=== PATIENT | male | born 1925 | race Caucasian/White ===

== ENCOUNTER → 2016-04-24 | Outpatient (CLI) | payer MEDICARE ==
--- NOTE | 2016-05-06 09:37 | P.ARTDOP ---
Arterial Doppler LOWER EXTREMITY ARTERIAL DOPPLER: DATE OF SERVICE: 04/24/2016 Reason for study: Suspected poor circulation. Doppler waveforms: Multiphasic bilaterally throughout. Pulse volume recording: Normal configuration. Pressure gradients: None. Ankle-brachial indices: Greater than 1 on the right and cannot be occluded on the left. Toe pressures: 112 on the right, 112 on the left Impression: Normal flow study. Suspect calcific wall disease causing inability to occlude ankle level..
== END | disposition home or self-care (01) ==
LOC: RADUSWWP 09:55
PROVIDERS: ATTEND Family Medicine
DX: I73.9 Peripheral vascular disease, unspecified (principal)
CPT/HCPCS: 93923

== ENCOUNTER → 2016-06-25 | Outpatient (CLI) | payer MEDICARE | END | disposition home or self-care (01) | LOC: LABWHC1 11:37 | PROVIDERS: ATTEND Family Medicine | DX: Z53.9 Procedure and treatment not carried out, unspecified reason (principal) ==

== ENCOUNTER → 2016-07-13 | Outpatient (CLI) | payer MEDICARE ==
--- NOTE | 2016-07-13 15:07 | US ---
EXAMINATION TYPE: US venous doppler duplex LE DATE OF EXAM: 07/13/2016 2:48 PM COMPARISON: NONE CLINICAL HISTORY: M79.605 Pain in left leg. Numbness bilateral legs, wound left toe LOWER EXTREMITY VENOUS INSUFFICIENCY SIDE PERFORMED: bilateral 1) Color flow is present and patency is documented in the following vessels. No DVT or SVT is noted . ? EIV ? Common Femoral Vein ? Deep Femoral Vein ? Femoral Vein ? Popliteal Vein ? Proximal Calf Veins ? Greater Saph Vein ? Upper Small Saph Vein 2) There is venous reflux noted at the following venous levels: Right CFV, right deep femoral vein, right femoral vein mid, right popliteal vein upper mid and lower, left EIV IMPRESSION: Reflux as noted above.
== END | disposition home or self-care (01) ==
LOC: RADUSWWP 13:54
PROVIDERS: ATTEND Family Medicine
DX: I87.2 Venous insufficiency (chronic) (peripheral) (principal); E13.621 Other specified diabetes mellitus with foot ulcer
CPT/HCPCS: 85652; 86140; 93970

== ENCOUNTER 2016-08-24 18:00 | Emergency (ER) | payer MEDICARE ==
--- NOTE | 2016-08-24 18:28 | ED ---
General Adult HPI - General Chief complaint: Fall Stated complaint: Fall Time Seen by Provider: 08/24/16 18:01 Source: EMS, RN notes reviewed Mode of arrival: EMS Limitations: no limitations - History of Present Illness Initial comments: Patient is an 89-year-old male presents to the emergency room for evaluation of right hip pain. Patient states a few days ago after waking up from bed he noticed his right hip was bothering him. Patient does states patient states he has left great toe wound that was recently treated with Cipro. Patient states he's been on Cipro for the past 10 days. Patient denies fevers or chills. Patient denies any redness at his hip. Patient states he has a history of rheumatoid arthritis in b/l shoulders. Patient states throughout the past few days he has been having worsening right hip pain. Patient states today while trying to transport himself from the wheelchair to his bed he slipped off the bed landing on his right hip. Patient denies any increasing hip pain. Patient states he has a history of spinal stenosis. Patient states he is mostly wheelchair bound. Patient denies any redness or heat from his right hip. Patient states the pain is worse whenever he tries to move his hip. - Related Data Home Medications Medication Instructions Recorded Confirmed Cholecalciferol [Vitamin D3] 1,000 unit PO DAILY 04/21/15 08/24/16 Cyanocobalamin [Vitamin B-12] 500 mcg PO DAILY 04/21/15 08/24/16 Aspirin EC [Ecotrin Low Dose] 81 mg PO HS 02/05/16 08/24/16 Potassium Chloride ER [K-Dur 20] 20 meq PO Q12H 02/05/16 08/24/16 Metoprolol Tartrate [Lopressor] 25 mg PO HS 06/09/16 08/24/16 traMADol HCl [Ultram] 100 mg PO BID PRN 06/09/16 08/24/16 Furosemide [Lasix] 80 mg PO BID 08/24/16 08/24/16 predniSONE See Taper PO DIRECTED 08/24/16 08/24/16 Previous Rx's Medication Instructions Recorded Omeprazole [PriLOSEC] 40 mg PO AC-BRKFST #30 cap 07/11/15 Nitrofurantoin Monohyd/M-Cryst 100 mg PO Q12HR 5 Days 08/24/16 [Macrobid] Allergies Allergy/AdvReac Type Severity Reaction Status Date / Time amoxicillin Allergy Unknown Verified 08/24/16 18:58 cefazolin Allergy Rash/Hives Verified 08/24/16 18:58 sulfamethoxazole Allergy Itching Verified 08/24/16 18:58 [From Bactrim] trimethoprim [From Bactrim] Allergy Itching Verified 08/24/16 18:58 Review of Systems ROS Statement: Those systems with pertinent positive or pertinent negative responses have been documented in the HPI. ROS Other: All systems not noted in ROS Statement are negative. Past Medical History Past Medical History: Atrial Fibrillation, Cancer, Heart Failure, COPD, GERD/ Reflux, Hypertension, Osteoarthritis (OA), Rheumatoid Arthritis (RA), Vascular Disorder Additional Past Medical History / Comment(s): PAC's, DJD, UTI, generalized arthritis and pt states RA too, back pain, esophageal stricture with dilation, prostate cancer with surgery and 20 yrs later radiation, urinary incontinence, kidney stones passed himself, bladder stone surgically removed, bilateral numbness and tingling to legs and feet, spinal stenosis, 04/2015 dermatophytosis bilateral feet. History of Any Multi-Drug Resistant Organisms: None Reported Past Surgical History: Back Surgery, Bladder Surgery, Hernia Repair, Orthopedic Surgery Additional Past Surgical History / Comment(s): neck and back surgery, bilateral knee surgery, one total Past Anesthesia/Blood Transfusion Reactions: No Reported Reaction Additional Past Anesthesia/Blood Transfusion Reaction / Comment(s): Pt states he has received blood in the past without reaction. Past Psychological History: No Psychological Hx Reported Smoking Status: Former smoker Past Alcohol Use History: Occasional Past Drug Use History: None Reported - Past Family History Mother Family Medical History: Congestive Heart Failure (CHF) Additional Family Medical History / Comment(s): Mother at age 96. Father Family Medical History: No Reported History Additional Family Medical History / Comment(s): Father of a CHI with a fall in his 70's. General Exam - General Exam Comments Initial Comments: Laying in exam room, no acute distress. Limitations: no limitations General appearance: alert, in no apparent distress Head exam: Present: atraumatic, normocephalic, normal inspection Eye exam: Present: normal appearance ENT exam: Present: normal exam Neck exam: Present: normal inspection Respiratory exam: Present: normal lung sounds bilaterally. Absent: respiratory distress Cardiovascular Exam: Present: regular rate, normal rhythm, normal heart sounds Right Hip exam: Present: normal inspection Upper Leg exam: Present: tenderness (lateral hip joint) Knee exam: Absent: tenderness Lower Leg exam: Absent: tenderness Ankle exam: Absent: tenderness Foot/Toe exam: Absent: tenderness Neurovascular tendon exam: Present: no vascular compromise. Absent: pulse deficit (2+ dorsal pedal and posterior tibial pulses), abnormal cap refill ( Capillary refill less than 2 seconds) Back exam: Present: normal inspection Neurological exam: Present: alert, oriented X3 Psychiatric exam: Present: normal affect, normal mood Skin exam: Present: warm, dry, intact, normal color. Absent: rash Course Vital Signs 08/24/16 08/24/16 08/24/16 18:01 19:08 20:51 Temperature 98.3 F 99.2 F 98.2 F Pulse Rate 57 L 107 H 80 Respiratory 18 18 18 Rate Blood Pressure 111/59 115/79 112/58 O2 Sat by Pulse 91 L 96 95 Oximetry 08/24/16 21:21 Temperature 97.8 F Pulse Rate 70 Respiratory 16 Rate Blood Pressure 112/58 O2 Sat by Pulse 98 Oximetry Medical Decision Making - Medical Decision Making Patient is a 89-year-old male presents emergency room for evaluation of fall and injury and right hip pain. Right hip and pelvis x-ray negative for any acute findings. Right hip CT ordered to rule out any missed fractures from x- ray. CT negative for any acute fractures. Patient is noted to have urinary tract infection. Patient be placed on Macrobid and advised to follow-up with primary care provider. Patient and family state they understand everything that was discussed with them. Return parameters discussed. Case discussed Dr. Diaz. - Lab Data Result diagrams: 08/24/16 18:23 08/24/16 18:23 Lab Results 08/24/16 08/24/16 08/24/16 Range/Units 18:23 18:23 18:23 WBC 18.8 H (3.8-10.6) k/uL RBC 4.64 (4.30-5.90) m/uL Hgb 13.3 (13.0-17.5) gm/dL Hct 41.5 (39.0-53.0) % MCV 89.5 (80.0-100.0) fL MCH 28.6 (25.0-35.0) pg MCHC 32.0 (31.0-37.0) g/dL RDW 15.2 (11.5-15.5) % Plt Count 135 L (150-450) k/uL Neutrophils % 92 % Lymphocytes % 2 % Monocytes % 4 % Eosinophils % 0 % Basophils % 0 % Neutrophils # 17.3 H (1.3-7.7) k/uL Lymphocytes # 0.4 L (1.0-4.8) k/uL Monocytes # 0.8 (0-1.0) k/uL Eosinophils # 0.0 (0-0.7) k/uL Basophils # 0.0 (0-0.2) k/uL Sodium 130 L (137-145) mmol/L Potassium 4.5 (3.5-5.1) mmol/L Chloride 93 L (98-107) mmol/L Carbon Dioxide 25 (22-30) mmol/L Anion Gap 12 mmol/L BUN 44 H (9-20) mg/dL Creatinine 1.40 H (0.66-1.25) mg/dL Est GFR (MDRD) Af Amer 58 (>60 ml/min/1.73 sqM) Est GFR (MDRD) Non-Af 48 (>60 ml/min/1.73 sqM) Glucose 123 H (74-99) mg/dL Calcium 8.8 (8.4-10.2) mg/dL Total Bilirubin 1.1 (0.2-1.3) mg/dL AST 10 L (17-59) U/L ALT 23 (21-72) U/L Alkaline Phosphatase 66 (38-126) U/L Total Protein 5.9 L (6.3-8.2) g/dL Albumin 2.9 L (3.5-5.0) g/dL Urine Color Light Yellow Urine Appearance Clear (Clear) Urine pH 5.0 (5.0-8.0) Ur Specific [place] 1.007 (1.001-1.035) Urine Protein Negative (Negative) Urine Glucose (UA) Negative (Negative) Urine Ketones Negative (Negative) Urine Blood Trace H (Negative) Urine Nitrite Negative (Negative) Urine Bilirubin Negative (Negative) Urine Urobilinogen <2.0 (<2.0) mg/dL Ur Leukocyte Esterase Large H (Negative) Urine RBC 3 (0-5) /hpf Urine WBC 48 H (0-5) /hpf Ur Squamous Epith Cells <1 (0-4) /hpf Urine Bacteria Many H (None) /hpf Hyaline Casts 3 H (0-2) /lpf Urine Mucus Rare H (None) /hpf - Radiology Data Radiology results: report reviewed, image reviewed Disposition Clinical Impression: Urinary tract infection, Contusion of right hip Disposition: HOME SELF-CARE Condition: Good Instructions: Urinary Tract Infection in Men (ED), Fall Prevention for Older Adults (ED) Additional Instructions: Take antibiotics as directed. Ice right hip on and off for 20 minutes at a time. Take Tylenol or Motrin as needed for pain. Please follow up with primary care provider in 1-2 days for reevaluation. If any new symptom arises or symptoms worsen, return to ER as soon as possible. Prescriptions: Nitrofurantoin Monohyd/M-Cryst [Macrobid] 100 mg PO Q12HR 5 Days Referrals: Mario Nova DO [Primary Care Provider] - 1-2 days Time of Disposition: 21:00
[2016-08-24 18:38] LABS: Basophils % (A) 0 %; CH 29.1; CHCM 32.6; Eosinophils % (A) 0 %; HCT 41.5 % (39.0-53.0); HDW 2.54; HGB 13.3 gm/dL (13.0-17.5); Luc # (Auto) 0.29; Luc % (Auto) 2; Lymphocytes # (A) 0.4 k/uL (1.0-4.8); Lymphocytes % (A) 2 %; MCH 28.6 pg (25.0-35.0); MCV 89.5 fL (80.0-100.0); Mean Platelet Volume 8.5; Monocytes # (A) 0.8 k/uL (0-1.0); Monocytes % (A) 4 %; Neutrophils # (A) 17.3 k/uL (1.3-7.7); Neutrophils % (A) 92 %; RBC 4.64 m/uL (4.30-5.90); RDW 15.2 % (11.5-15.5); WBC 18.8 k/uL (3.8-10.6)
[2016-08-24 18:41] LABS: Appearance,Urine Clear (Clear); Bacteria,Urine Many /hpf; Bilirubin,Urine Negative (Negative); Glucose,Urine (UA) Negative (Negative); Ketones,Urine Negative (Negative); Leukocyte Esterase,Urine Large (Negative); Mucus,Urine Rare /hpf; Nitrite,Urine Negative (Negative); Particle Count 8611; Protein,Urine Negative (Negative); RBC,Urine 3 /hpf (0-5); Specific Gravity,Urine 1.007 (1.001-1.035); Squamous Epithelial Cell,Urine <1 /hpf (0-4); UA Billing (MACRO vs. MICRO) MICRO; Urobilinogen,Urine <2.0 mg/dL (<2.0); WBC,Urine 48 /hpf (0-5)
[2016-08-24 18:49] LABS: Calcium 8.8 mg/dL (8.4-10.2); Potassium 4.5 mmol/L (3.5-5.1); Total Bilirubin 1.1 mg/dL (0.2-1.3); Total Protein 5.9 g/dL (6.3-8.2)
--- NOTE | 2016-08-24 19:07 | XR ---
EXAMINATION TYPE: XR Hip RT and AP Pelvis DATE OF EXAM: 08/24/2016 COMPARISON: NONE HISTORY: Fell on the right hip. Pain. TECHNIQUE: A single AP view of the pelvis is obtained. Two views of the right hip are obtained. FINDINGS: The pelvic ring appears intact. There is osteopenia. There is narrowing of hip joint spaces with acet abular spurring. There is multilevel lower lumbar spine fusion surgery. There is multilevel lumbar la minectomy. Sacroiliac joints appear intact. Proximal right femur shows no fracture. IMPRESSION: There is osteopenia. No fracture seen.
--- NOTE | 2016-08-24 20:05 | CT ---
EXAMINATION TYPE: CT hip RT wo con DATE OF EXAM: 08/24/2016 COMPARISON: NONE HISTORY: Recent fall, right hip pain. CT DLP: 390.80 mGycm Automated exposure control for dose reduction was used. FINDINGS: Multiple axial sections were obtained from the top of the right iliac crest to the subtrochanteric ri ght femur with no contrast. There is patchy osteopenia. There are small degenerative cysts in the femoral head in the acetabulum. There is some spurring on the greater trochanter of the right femur. There is narrowing of right hip joint space. There is acetabular spurring. I see no fracture. The right ischium is intact. There is atherosclerotic vascular calcification. There is mild edema in the subcutaneous fat lateral to the ri ght hip joint. IMPRESSION: MILD OSTEOARTHRITIS. OSTEOPENIA. NO ACUTE FRACTURE SEEN. THERE IS EVIDENCE FOR SOME SOFT TISSUE BRUIS ING LATERAL TO THE RIGHT HIP JOINT.
[2016-08-24] MEDS ORDERED: SODIUM CHLORIDE 0.9% 1,000 ML IV ONE (20:25)
[2016-08-24] MEDS ORDERED: NITROFURANTOIN MONOHYD/M-CRYST 100 MG CAP PO STA (20:25)
[2016-08-24 20:56] VITALS: BP 112/58
[2016-08-24 21:22] VITALS: PULSE 70; RESP 16; TEMP 97.8
== END 2016-08-24 21:22 | disposition home or self-care (01) ==
LOC: EC 18:00
DX: S70.01XA Contusion of right hip, initial encounter (principal); N39.0 Urinary tract infection, site not specified; I10 Essential (primary) hypertension; Z85.46 Personal history of malignant neoplasm of prostate; Z53.20 Procedure and treatment not carried out because of patient's decision for unspecified reasons; Z87.891 Personal history of nicotine dependence; Z88.0 Allergy status to penicillin; Z88.1 Allergy status to other antibiotic agents; Z88.2 Allergy status to sulfonamides; Z79.82 Long term (current) use of aspirin; Z79.52 Long term (current) use of systemic steroids; Z79.899 Other long term (current) drug therapy; W06.XXXA Fall from bed, initial encounter
CPT/HCPCS: 36415; 73502; 80053; 81001; 85025; 87077; 87086; 87186; 99284

== ENCOUNTER 2016-08-28 10:49 | Inpatient (IN) | payer MEDICARE ==
[2016-08-28] MEDS ORDERED: SODIUM CHLORIDE 0.9% 1,000 ML IV STA (11:30)
[2016-08-28] MEDS ORDERED: HYDROmorphone 1 MG/ML 1 ML SYRINGE IVP STA (11:30)
[2016-08-28] MEDS ORDERED: MAGNESIUM CITRATE 296 ML BOTTLE PO ONE (11:33)
--- NOTE | 2016-08-28 11:38 | ED ---
General Adult HPI - General Chief complaint: Extremity Injury, Lower Stated complaint: Hip Pain Time Seen by Provider: 08/28/16 11:11 Source: patient, family, EMS Mode of arrival: EMS Limitations: physical limitation - History of Present Illness Initial comments: This 89-year-old white male presents with and daughter with multiple complaints. He primarily is having right hip pain. He was seen here 4 days ago after falling and injuring his right hip. He normally is wheelchair bound but is able to bear minimal weight for transferring. Since Wednesday he has not been able to put any weight on his right hip. He was seen in the emergency department at that time and had negative x-rays and CAT scan of the right hip. No fracture was noted. They did note some arthritis. He was discharged with some steroids which did not help. They called their primary doctor and he was placed on [place]. This has not helped as well. He apparently has been constipated and has not had a bowel movement for the past 5 days likely related to the pain medications. He was given a suppository and oral laxatives without relief. The family also relates that he is diagnosed with the urinary tract infection. He had previously been on Cipro for a left toe wound. This apparently did not treat the infection and he is placed on Macrobid since he was here on Wednesday. He apparently had his bladder out due to cancer issues and either urinates into a condom catheter or a diaper. They state that his mental status has declined minimally over the last 2 days as well. They cannot handle him at home any longer and would like to discuss with a bilingual social worker for possible increased home care. No other identifiable complaints or modifying factors. - Related Data Home Medications Medication Instructions Recorded Confirmed Cholecalciferol [Vitamin D3] 1,000 unit PO DAILY 04/21/15 08/28/16 Cyanocobalamin [Vitamin B-12] 500 mcg PO DAILY 04/21/15 08/28/16 Aspirin EC [Ecotrin Low Dose] 81 mg PO HS 02/05/16 08/28/16 Potassium Chloride ER [K-Dur 20] 20 meq PO Q12H 02/05/16 08/28/16 Metoprolol Tartrate [Lopressor] 25 mg PO HS 06/09/16 08/28/16 traMADol HCl [Ultram] 100 mg PO BID PRN 06/09/16 08/28/16 Furosemide [Lasix] 80 mg PO BID 08/24/16 08/28/16 predniSONE See Taper PO DIRECTED 08/24/16 08/28/16 Ciprofloxacin HCl [Cipro] 250 mg PO Q12HR 08/28/16 08/28/16 HYDROcodone/APAP 5-325MG [[place] 1 tab PO Q4HR PRN 08/28/16 08/28/16 5-325] Previous Rx's Medication Instructions Recorded Omeprazole [PriLOSEC] 40 mg PO AC-BRKFST #30 cap 07/11/15 Allergies Allergy/AdvReac Type Severity Reaction Status Date / Time amoxicillin Allergy Unknown Verified 08/28/16 11:17 cefazolin Allergy Rash/Hives Verified 08/28/16 11:17 sulfamethoxazole Allergy Itching Verified 08/28/16 11:17 [From Bactrim] trimethoprim [From Bactrim] Allergy Itching Verified 08/28/16 11:17 Review of Systems ROS Statement: Those systems with pertinent positive or pertinent negative responses have been documented in the HPI. ROS Other: All systems not noted in ROS Statement are negative. Past Medical History Past Medical History: Atrial Fibrillation, Cancer, Heart Failure, COPD, GERD/ Reflux, Hypertension, Osteoarthritis (OA), Rheumatoid Arthritis (RA), Vascular Disorder Additional Past Medical History / Comment(s): PAC's, DJD, UTI, generalized arthritis and pt states RA too, back pain, esophageal stricture with dilation, prostate cancer with surgery and 20 yrs later radiation, urinary incontinence, kidney stones passed himself, bladder stone surgically removed, bilateral numbness and tingling to legs and feet, spinal stenosis, 04/2015 dermatophytosis bilateral feet. History of Any Multi-Drug Resistant Organisms: None Reported Past Surgical History: Back Surgery, Bladder Surgery, Hernia Repair, Orthopedic Surgery Additional Past Surgical History / Comment(s): neck and back surgery, bilateral knee surgery, one total Past Anesthesia/Blood Transfusion Reactions: No Reported Reaction Additional Past Anesthesia/Blood Transfusion Reaction / Comment(s): Pt states he has received blood in the past without reaction. Past Psychological History: No Psychological Hx Reported Smoking Status: Former smoker Past Alcohol Use History: Occasional Past Drug Use History: None Reported - Past Family History Mother Family Medical History: Congestive Heart Failure (CHF) Additional Family Medical History / Comment(s): Mother at age 96. Father Family Medical History: No Reported History Additional Family Medical History / Comment(s): Father of a CHI with a fall in his 70's. General Exam - General Exam Comments Initial Comments: GENERAL: The patient is well nourished and well hydrated. VITAL SIGNS: Heart rate, blood pressure, respiratory rate reviewed as recorded in nurse's notes. EYES: Pupils are round and reactive. Extraocular movements are intact. No conjunctival / lid redness or swelling. ENT: No external evidence of injury, swelling, or ecchymosis. Airway is patent. Throat is clear. NECK: Nontender. No swelling or evidence of injury. No subcutaneous emphysema. Trachea is midline. No thyroid mass. HEART: Tachycardic heart rate is noted. Good peripheral pulses. LUNGS/CHEST: Breath sounds clear and equal bilaterally. No rales, rhonchi, or wheezes. No ecchymosis, subcutaneous emphysema, or tenderness. ABDOMEN: Abdomen soft without tenderness. No palpable masses or organomegaly. No peritoneal signs. No abdominal wall swelling or ecchymosis. EXTREMITIES: There is tenderness noted to the right hip. There is increased pain with any range of motion of the right hip. Normal muscle tone and function. No thoracolumbar tenderness. There is lateral lower extremity pitting edema noted which apparently is chronic for him. He left large toe is thoroughly dressed. NEUROLOGIC: Sensation is grossly intact. Cranial nerve exam reveals face is symmetrical, tongue is midline, speech is clear. SKIN: No abrasions or ecchymosis is noted. No induration or masses noted. PSYCHIATRIC: Alert and oriented. Appropriate behavior and judgment. Limitations: physical limitation Course Vital Signs 08/28/16 10:52 Temperature 98.2 F Pulse Rate 130 H Respiratory 20 Rate Blood Pressure 123/71 O2 Sat by Pulse 95 Oximetry Medical Decision Making - Medical Decision Making The patient is seen and examined. All diagnostics are reviewed. An IV is started and he is mildly hydrated. He also receives Dilaudid 0.5 mg IV. Magnesium citrate is ordered. The EKG shows a rhythm of atrial fibrillation with rapid ventricular response with a heart rate of 111. There is no acute ST T-wave changes identified. The patient does have a right bundle-branch block. There is left axis deviation. The QRS duration is 132 the QTc interval is 41. On recheck his heart rate is approximately 120. It is felt that he does have atrial fibrillation with rapid ventricular response. He has a history of atrial fibrillation. Cardizem will be initiated. His laboratory is reviewed and does show minimal elevation of his troponin. There is other minor abnormalities with the labs. Rate of the right hip and pelvis shows significant arthritis in the right hip as well as osteopenia. X-ray of the abdomen shows evidence of constipation. It appears that he is unable to ambulate whatsoever. The family is not able to take care of him and his current state. Is felt that he would require admission to the hospital for treatment of his multiple conditions. He may need additional imaging of the hip to rule out any possibility of fracture. Old records indicate evidence of a urinary tract infection. He'll be started on IV antibiotics for this as well is it appears somewhat resistant. The case will be discussed with internal medicine shortly and he'll be admitted to the hospital for further treatment. - Lab Data Result diagrams: 08/28/16 11:52 08/28/16 11:52 Lab Results 08/28/16 08/28/16 08/28/16 Range/Units 11:52 11:52 11:52 WBC 14.6 H (3.8-10.6) k/uL RBC 4.70 (4.30-5.90) m/uL Hgb 13.9 (13.0-17.5) gm/dL Hct 41.4 (39.0-53.0) % MCV 88.1 (80.0-100.0) fL MCH 29.5 (25.0-35.0) pg MCHC 33.5 (31.0-37.0) g/dL RDW 14.9 (11.5-15.5) % Plt Count 161 (150-450) k/uL Neutrophils % 88 % Lymphocytes % 3 % Monocytes % 6 % Eosinophils % 2 % Basophils % 0 % Neutrophils # 12.9 H (1.3-7.7) k/uL Lymphocytes # 0.4 L (1.0-4.8) k/uL Monocytes # 0.9 (0-1.0) k/uL Eosinophils # 0.2 (0-0.7) k/uL Basophils # 0.0 (0-0.2) k/uL Hypochromasia Slight PT (9.0-12.0) sec INR (<1.1) APTT (22.0-30.0) sec Sodium 135 L (137-145) mmol/L Potassium 4.0 (3.5-5.1) mmol/L Chloride 96 L (98-107) mmol/L Carbon Dioxide 30 (22-30) mmol/L Anion Gap 9 mmol/L BUN 37 H (9-20) mg/dL Creatinine 1.10 (0.66-1.25) mg/dL Est GFR (MDRD) Af Amer >60 (>60 ml/min/1.73 sqM) Est GFR (MDRD) Non-Af >60 (>60 ml/min/1.73 sqM) Glucose 84 (74-99) mg/dL Calcium 9.4 (8.4-10.2) mg/dL Total Bilirubin 0.9 (0.2-1.3) mg/dL AST 16 L (17-59) U/L ALT 36 (21-72) U/L Alkaline Phosphatase 112 (38-126) U/L Total Creatine Kinase <20 L (55-170) U/L CK-MB (CK-2) 1.0 (0.0-2.4) ng/mL CK-MB (CK-2) Rel Index 0.0 Troponin I 0.178 H* (0.000-0.034) ng/mL Total Protein 5.6 L (6.3-8.2) g/dL Albumin 2.8 L (3.5-5.0) g/dL TSH 2.350 (0.465-4.680) mIU/L 08/28/16 Range/Units 11:52 WBC (3.8-10.6) k/uL RBC (4.30-5.90) m/uL Hgb (13.0-17.5) gm/dL Hct (39.0-53.0) % MCV (80.0-100.0) fL MCH (25.0-35.0) pg MCHC (31.0-37.0) g/dL RDW (11.5-15.5) % Plt Count (150-450) k/uL Neutrophils % % Lymphocytes % % Monocytes % % Eosinophils % % Basophils % % Neutrophils # (1.3-7.7) k/uL Lymphocytes # (1.0-4.8) k/uL Monocytes # (0-1.0) k/uL Eosinophils # (0-0.7) k/uL Basophils # (0-0.2) k/uL Hypochromasia PT 11.8 (9.0-12.0) sec INR 1.2 (<1.1) APTT 22.1 (22.0-30.0) sec Sodium (137-145) mmol/L Potassium (3.5-5.1) mmol/L Chloride (98-107) mmol/L Carbon Dioxide (22-30) mmol/L Anion Gap mmol/L BUN (9-20) mg/dL Creatinine (0.66-1.25) mg/dL Est GFR (MDRD) Af Amer (>60 ml/min/1.73 sqM) Est GFR (MDRD) Non-Af (>60 ml/min/1.73 sqM) Glucose (74-99) mg/dL Calcium (8.4-10.2) mg/dL Total Bilirubin (0.2-1.3) mg/dL AST (17-59) U/L ALT (21-72) U/L Alkaline Phosphatase (38-126) U/L Total Creatine Kinase (55-170) U/L CK-MB (CK-2) (0.0-2.4) ng/mL CK-MB (CK-2) Rel Index Troponin I (0.000-0.034) ng/mL Total Protein (6.3-8.2) g/dL Albumin (3.5-5.0) g/dL TSH (0.465-4.680) mIU/L Disposition Clinical Impression: Constipation, Right hip pain, Inability to walk, Tachycardia, UTI (urinary tract infection), Mental status change, Generalized weakness, Atrial fibrillation with RVR, Arthritis of right hip, Osteopenia, Elevated troponin Disposition: ADMITTED IP TO THIS [facility] Condition: Fair Time of Disposition: 13:56 Decision Date: 08/28/16 Decision Time: 13:56
[2016-08-28 12:12] LABS: Basophils % (A) 0 %; CH 28.2; CHCM 32.1; Eosinophils # (A) 0.2 k/uL (0-0.7); Eosinophils % (A) 2 %; HCT 41.4 % (39.0-53.0); HDW 2.67; HGB 13.9 gm/dL (13.0-17.5); Hypochromasia Slight; Luc # (Auto) 0.28; Luc % (Auto) 2; Lymphocytes # (A) 0.4 k/uL (1.0-4.8); Lymphocytes % (A) 3 %; MCH 29.5 pg (25.0-35.0); MCHC 33.5 g/dL (31.0-37.0); MCV 88.1 fL (80.0-100.0); Mean Platelet Volume 8.2; Monocytes # (A) 0.9 k/uL (0-1.0); Monocytes % (A) 6 %; Neutrophils # (A) 12.9 k/uL (1.3-7.7); Neutrophils % (A) 88 %; RDW 14.9 % (11.5-15.5); WBC 14.6 k/uL (3.8-10.6); WBC (Perox) 14.64
[2016-08-28 12:19] LABS: INR 1.2 (<1.1); Partial Thromboplastin Time 22.1 sec (22.0-30.0); Prothrombin Time 11.8 sec (9.0-12.0)
[2016-08-28 12:20] LABS: ALT 36 U/L (21-72); AST 16 U/L (17-59); Alkaline Phosphatase 112 U/L (38-126); Anion Gap 9 mmol/L; Blood Urea Nitrogen 37 mg/dL (9-20); Calcium 9.4 mg/dL (8.4-10.2); Carbon Dioxide 30 mmol/L (22-30); Chloride 96 mmol/L (98-107); Glucose 84 mg/dL (74-99); Non-African American GFR(MDRD) >60 (>60 ml/min/1.73 sqM); Sodium 135 mmol/L (137-145); Total Bilirubin 0.9 mg/dL (0.2-1.3); Total Protein 5.6 g/dL (6.3-8.2)
[2016-08-28 12:37] LABS: Creatine Kinase <20 U/L (55-170)
--- NOTE | 2016-08-28 12:52 | XR ---
EXAMINATION TYPE: XR KUB DATE OF EXAM: 08/28/2016 COMPARISON: NONE HISTORY: Pain TECHNIQUE: One view abdominal series FINDINGS: The osseous structures are intact. The bowel gas pattern is nonspecific. Postsurgical change involvi ng the lumbar spine with diffuse osteopenia. Severe arthropathy of the hip joints. Penile implant sug gested. Surgical clips in the pelvis. Vascular calcification seen. Retained fecal debris noted. IMPRESSION: 1. Nonspecific abdomen. Correlate for constipation.
[2016-08-28 12:53] LABS: Troponin I 0.178 ng/mL (0.000-0.034)
--- NOTE | 2016-08-28 12:55 | XR ---
EXAMINATION TYPE: XR Hip RT and AP Pelvis DATE OF EXAM: 08/28/2016 COMPARISON: NONE HISTORY: Right hip pain TECHNIQUE: A single AP view of the pelvis is obtained. Two views of the right hip are obtained. FINDINGS: There is postsurgical change lumbar spine with diffuse osteopenia. As limits assessment fo r fracture. No obvious displaced fractures are seen. Severe arthropathy of the hip joints. Retained f ecal debris throughout the colon. Penile implant and postsurgical changes are noted. Vascular calcifi cations noted. IMPRESSION: 1. Post arthritic change and severe osteopenia
[2016-08-28] MEDS ORDERED: DILTIAZEM 125 MG in SODIUM CHLORIDE 0.9% 100 ML IV ONE (13:58)
[2016-08-28] MEDS ORDERED: LEVOFLOXACIN 750MG-D5W PMX 750 MG in DEXTROSE/WATER 1 150ML.BAG IVPB STA (13:59)
[2016-08-28] MEDS ORDERED: ACETAMINOPHEN TAB 325 MG TAB PO PRN (14:00)
[2016-08-28] MEDS ORDERED: ONDANSETRON 4 MG/2 ML VIAL IVP PRN (14:00)
[2016-08-28] MEDS ORDERED: NALOXONE 0.4 MG/ML 1 ML VIAL IV PRN (14:00)
[2016-08-28 14:05] LABS: Appearance,Urine Turbid (Clear); Bacteria,Urine Moderate /hpf; Bilirubin,Urine Negative (Negative); Glucose,Urine (UA) Negative (Negative); Ketones,Urine Negative (Negative); Leukocyte Esterase,Urine Large (Negative); Nitrite,Urine Negative (Negative); PH, Urine 5.5 (5.0-8.0); Particle Count 31582; Protein,Urine 2+ (Negative); RBC,Urine 50 /hpf (0-5); Specific Gravity,Urine 1.018 (1.001-1.035); Squamous Epithelial Cell,Urine 19 /hpf (0-4); UA Billing (MACRO vs. MICRO) MICRO; WBC,Urine 148 /hpf (0-5)
[2016-08-28] MEDS ORDERED: HEPARIN SODIUM,PORCINE 5,000 UNIT/ML 1 ML VIAL IV ONE (14:05)
[2016-08-28] MEDS ORDERED: HEPARIN SODIUM,PORCINE 5,000 UNIT/ML 1 ML VIAL IV PRN (14:05)
[2016-08-28] MEDS ORDERED: HEPARIN SODIUM,PORCINE/D5W PMX 25,000 UNIT in DEXTROSE/WATER 1 500ML.BAG IV SCH (14:15)
[2016-08-28] MEDS: HYDROmorphone 1 MG/ML 1 ML SYRINGE IV PRN (17:45)
[2016-08-28] MEDS: COLLAGENASE 250 UNIT/GM OINTMENT 30 GM TUBE TOPICAL SCH (18:09)
[2016-08-28 19:34] LABS: Creatine Kinase <20 U/L (55-170)
[2016-08-28 19:42] LABS: Creatine Kinase MB 0.9 ng/mL (0.0-2.4)
[2016-08-28 19:53] LABS: Troponin I 0.276 ng/mL (0.000-0.034)
[2016-08-28] MEDS ORDERED: METOPROLOL TARTRATE 25 MG TAB PO SCH (21:00)
[2016-08-28] MEDS: POTASSIUM CHLORIDE ER 20 MEQ TAB.ER PO SCH (23:00)
[2016-08-28] MEDS: FUROSEMIDE 80 MG TAB PO SCH (23:00)
[2016-08-28] MEDS: ASPIRIN 81 MG CHEW PO SCH (23:37)
[2016-08-29 00:39] LABS: Creatine Kinase <20 U/L (55-170)
[2016-08-29 00:53] LABS: Creatine Kinase MB 0.7 ng/mL (0.0-2.4)
[2016-08-29 00:59] LABS: Troponin I 0.325 ng/mL (0.000-0.034)
[2016-08-29 06:40] LABS: Basophils % (A) 0 %; CH 28.2; CHCM 31.6; Eosinophils # (A) 0.2 k/uL (0-0.7); Eosinophils % (A) 2 %; HCT 36.6 % (39.0-53.0); HDW 2.65; HGB 11.6 gm/dL (13.0-17.5); Hypochromasia Slight; Luc # (Auto) 0.27; Luc % (Auto) 3; Lymphocytes # (A) 0.5 k/uL (1.0-4.8); Lymphocytes % (A) 4 %; MCH 28.2 pg (25.0-35.0); MCHC 31.6 g/dL (31.0-37.0); MCV 89.4 fL (80.0-100.0); Mean Platelet Volume 8.2; Monocytes # (A) 0.6 k/uL (0-1.0); Monocytes % (A) 6 %; Neutrophils # (A) 9.5 k/uL (1.3-7.7); Neutrophils % (A) 86 %; WBC (Perox) 11.23
[2016-08-29 07:05] LABS: Creatine Kinase <20 U/L (55-170)
[2016-08-29 07:14] LABS: Creatine Kinase MB 0.6 ng/mL (0.0-2.4)
[2016-08-29 07:19] LABS: Troponin I 0.288 ng/mL (0.000-0.034)
[2016-08-29] MEDS: PANTOPRAZOLE 40 MG TABLET PO SCH (08:28)
[2016-08-29] MEDS: POTASSIUM CHLORIDE ER 20 MEQ TAB.ER PO SCH ×2 (08:39→22:24)
[2016-08-29] MEDS: FUROSEMIDE 80 MG TAB PO SCH ×2 (08:39→22:23)
[2016-08-29] MEDS: PANTOPRAZOLE 40 MG/10 ML VIAL IV SCH (08:39)
[2016-08-29] MEDS: COLLAGENASE 250 UNIT/GM OINTMENT 30 GM TUBE TOPICAL SCH (08:40)
--- NOTE | 2016-08-29 09:25 | P.CNOR ---
History of Present Illness - HPI Consult date: 08/29/16 History of present illness: This is a pleasant 89-year-old male who is admitted for evaluation of atrial fibrillation and right hip pain. Orthopedics was consulted to further evaluate the patient's right hip pain. Patient states he always has right hip pain but over the last few days it has been worse. Patient states a few nights ago he slid off of his bed when trying to transfer to his wheelchair. Patient states he is wheelchair bound and has not been able to walk for a year due to spinal stenosis. Patient states this was not a hard fall and he was having right hip pain before this incident. Patient states he came to the emergency room on because his right hip pain woke him up in the middle of the night and it was very bad. Patient states the pain is to the lateral aspect of the right hip. Patient denies any pain in the groin area. Patient states he's had episodes like this before in his shoulders and he attributes this pain and arthritis. Patient denies any fever/chills. Patient states he has chronic numbness to bilateral lower extremities. Patient denies any increasing weakness or tingling to bilateral lower extremities and patient denies any current back pain. Review of Systems See HPI. Past Medical History Past Medical History: Atrial Fibrillation, Cancer, Heart Failure, COPD, GERD/ Reflux, Hypertension, Osteoarthritis (OA), Rheumatoid Arthritis (RA), Vascular Disorder Additional Past Medical History / Comment(s): PAC's, DJD, UTI, generalized arthritis and pt states RA too, back pain, esophageal stricture with dilation, prostate cancer with surgery and 20 yrs later radiation, urinary incontinence, kidney stones passed himself, bladder stone surgically removed, bilateral numbness and tingling to legs and feet, spinal stenosis, 04/2015 dermatophytosis bilateral feet. History of Any Multi-Drug Resistant Organisms: None Reported Past Surgical History: Back Surgery, Bladder Surgery, Hernia Repair, Orthopedic Surgery, Prostate Surgery Additional Past Surgical History / Comment(s): neck and back surgery, bilateral knee surgery, one total Past Anesthesia/Blood Transfusion Reactions: No Reported Reaction Additional Past Anesthesia/Blood Transfusion Reaction / Comm: Pt states he has received blood in the past without reaction. Past Psychological History: No Psychological Hx Reported Additional Psychological History / Comment(s): Pt resides with his spouse. He transfers himself into a wheelchair. He transfers himself to a shower chair. He is independent with his ADLs and manages his own medication. He can drive but spouse now does most of the driving. Retired. Was in the [employer] for a year. No international travel since then. No pets in the home at this time Smoking Status: Former smoker Past Alcohol Use History: Occasional Past Drug Use History: None Reported - Past Family History Mother Family Medical History: Congestive Heart Failure (CHF) Additional Family Medical History / Comment(s): Mother at age 96. Father Family Medical History: No Reported History Additional Family Medical History / Comment(s): Father of a CHI with a fall in his 70's. Medications and Allergies Home Medications Medication Instructions Recorded Confirmed Type Cholecalciferol [Vitamin D3] 1,000 unit PO DAILY 04/21/15 08/28/16 History Cyanocobalamin [Vitamin B-12] 500 mcg PO DAILY 04/21/15 08/28/16 History Aspirin EC [Ecotrin Low Dose] 81 mg PO HS 02/05/16 08/28/16 History Potassium Chloride ER [K-Dur 20] 20 meq PO Q12H 02/05/16 08/28/16 History Metoprolol Tartrate [Lopressor] 25 mg PO HS 06/09/16 08/28/16 History traMADol HCl [Ultram] 100 mg PO BID PRN 06/09/16 08/28/16 History Furosemide [Lasix] 80 mg PO BID 08/24/16 08/28/16 History predniSONE See Taper PO DIRECTED 08/24/16 08/28/16 History Ciprofloxacin HCl [Cipro] 250 mg PO Q12HR 08/28/16 08/28/16 History Collagenase [Santyl] 1 applic TOPICAL DAILY 08/28/16 08/28/16 History HYDROcodone/APAP 5-325MG [Independence 1 tab PO Q4HR PRN 08/28/16 08/28/16 History 5-325] Allergies Allergy/AdvReac Type Severity Reaction Status Date / Time amoxicillin Allergy Unknown Verified 08/28/16 11:17 cefazolin Allergy Rash/Hives Verified 08/28/16 11:17 sulfamethoxazole Allergy Itching Verified 08/28/16 11:17 [From Bactrim] trimethoprim [From Bactrim] Allergy Itching Verified 08/28/16 11:17 Physical Examination Right lower extremity: There is tenderness to palpation over the lateral aspect of the right hip. No tenderness palpation over the inguinal area of the right hip. There is erythema and induration to the lateral aspect of the right hip. This area blanches. There is no ecchymosis. Patient has very limited active and passive range of motion and range of motion causes increased pain to the right hip. There is 2+ pitting edema bilaterally. Dorsalis pedis pulses are 1 + bilaterally. Right lower extremity is warm to the touch and circulatory status is intact. Calf is soft and nontender. Left lower extremity: There is no tenderness to palpation over the lateral aspect of the left hip, no erythema, ecchymosis or swelling. Patient has limited but better active and passive range of motion of the left lower extremity when compared to the right lower extremity. There is no pain associated with range of motion to the left lower extremity. Calf is soft and nontender. Neurovascular and circulatory status are intact Results A CT scan of the hip done on 08/24/2016 without contrast was reviewed showing mild osteoarthritis. Osteopenia. No fracture seen. There is evidence for some soft tissue bruising lateral to the right hip joint. This report by Dr. Portillo. An x-ray of the right hip done on 08/28/2016 was reviewed showing post- arthritic change and severe osteopenia. Report by Dr. Strange. MRI of the right hip is pending. - Labs Labs: Abnormal Lab Results - Last 24 Hours (Table) 08/28/16 08/28/16 08/28/16 Range/Units 11:52 11:52 11:52 WBC 14.6 H (3.8-10.6) k/uL RBC (4.30-5.90) m/uL Hgb (13.0-17.5) gm/dL Hct (39.0-53.0) % Plt Count (150-450) k/uL Neutrophils # 12.9 H (1.3-7.7) k/uL Lymphocytes # 0.4 L (1.0-4.8) k/uL APTT (22.0-30.0) sec Sodium 135 L (137-145) mmol/L Chloride 96 L (98-107) mmol/L BUN 37 H (9-20) mg/dL AST 16 L (17-59) U/L Total Creatine Kinase <20 L (55-170) U/L Troponin I 0.178 H* (0.000-0.034) ng/mL Total Protein 5.6 L (6.3-8.2) g/dL Albumin 2.8 L (3.5-5.0) g/dL Urine Protein (Negative) Urine Blood (Negative) Ur Leukocyte Esterase (Negative) Urine RBC (0-5) /hpf Urine WBC (0-5) /hpf Ur Squamous Epith Cells (0-4) /hpf Urine Bacteria (None) /hpf 08/28/16 08/28/16 08/28/16 Range/Units 13:41 18:50 23:43 WBC (3.8-10.6) k/uL RBC (4.30-5.90) m/uL Hgb (13.0-17.5) gm/dL Hct (39.0-53.0) % Plt Count (150-450) k/uL Neutrophils # (1.3-7.7) k/uL Lymphocytes # (1.0-4.8) k/uL APTT (22.0-30.0) sec Sodium (137-145) mmol/L Chloride (98-107) mmol/L BUN (9-20) mg/dL AST (17-59) U/L Total Creatine Kinase <20 L <20 L (55-170) U/L Troponin I 0.276 H* 0.325 H* (0.000-0.034) ng/mL Total Protein (6.3-8.2) g/dL Albumin (3.5-5.0) g/dL Urine Protein 2+ H (Negative) Urine Blood Moderate H (Negative) Ur Leukocyte Esterase Large H (Negative) Urine RBC 50 H (0-5) /hpf Urine WBC 148 H (0-5) /hpf Ur Squamous Epith Cells 19 H (0-4) /hpf Urine Bacteria Moderate H (None) /hpf 08/28/16 08/29/16 08/29/16 Range/Units 23:43 06:10 06:10 WBC 11.0 H (3.8-10.6) k/uL RBC 4.10 L (4.30-5.90) m/uL Hgb 11.6 L (13.0-17.5) gm/dL Hct 36.6 L (39.0-53.0) % Plt Count 125 L (150-450) k/uL Neutrophils # 9.5 H (1.3-7.7) k/uL Lymphocytes # 0.5 L (1.0-4.8) k/uL APTT 41.6 H (22.0-30.0) sec Sodium (137-145) mmol/L Chloride (98-107) mmol/L BUN (9-20) mg/dL AST (17-59) U/L Total Creatine Kinase <20 L (55-170) U/L Troponin I 0.288 H* (0.000-0.034) ng/mL Total Protein (6.3-8.2) g/dL Albumin (3.5-5.0) g/dL Urine Protein (Negative) Urine Blood (Negative) Ur Leukocyte Esterase (Negative) Urine RBC (0-5) /hpf Urine WBC (0-5) /hpf Ur Squamous Epith Cells (0-4) /hpf Urine Bacteria (None) /hpf 08/29/16 Range/Units 06:10 WBC (3.8-10.6) k/uL RBC (4.30-5.90) m/uL Hgb (13.0-17.5) gm/dL Hct (39.0-53.0) % Plt Count (150-450) k/uL Neutrophils # (1.3-7.7) k/uL Lymphocytes # (1.0-4.8) k/uL APTT 40.6 H (22.0-30.0) sec Sodium (137-145) mmol/L Chloride (98-107) mmol/L BUN (9-20) mg/dL AST (17-59) U/L Total Creatine Kinase (55-170) U/L Troponin I (0.000-0.034) ng/mL Total Protein (6.3-8.2) g/dL Albumin (3.5-5.0) g/dL Urine Protein (Negative) Urine Blood (Negative) Ur Leukocyte Esterase (Negative) Urine RBC (0-5) /hpf Urine WBC (0-5) /hpf Ur Squamous Epith Cells (0-4) /hpf Urine Bacteria (None) /hpf Microbiology - Last 24 Hours (Table) 08/28/16 13:41 Urine Culture - Preliminary Urine,Catheterized H & H 08/28/16 08/29/16 Range/Units 11:52 06:10 Hgb 13.9 11.6 L (13.0-17.5) gm/dL Hct 41.4 36.6 L (39.0-53.0) % Coagulation 08/28/16 Range/Units 11:52 INR 1.2 (<1.1) Result Diagrams: 08/29/16 06:10 08/28/16 11:52 Assessment and Plan (1) Right hip pain Status: Acute Plan: #1. Continue bedrest #2. MRI of the right hip is pending. #3. Sed rate and CRP are pending. #4. K pad to the right hip as tolerated #5. Appreciate input from medicine. #6. Will follow the patient closely.
--- NOTE | 2016-08-29 09:49 | HP ---
DATE OF ADMISSION: 08/28/2016 Chief complaints are right hip pain. HISTORY OF PRESENT ILLNESS: This 89-year-old gentleman with a past medical history of multiple medical problems, including history of atrial fibrillation, history of COPD, GERD, hypertension, degenerative joint disease, rheumatoid arthritis, history of back surgery, being followed by Dr. Nova in the outpatient setting was complaining of right hip pain for the last several days. The patient apparently had a falling injury also. The CAT scan and x-rays were negative for any fracture. The patient was discharged on steroids and the patient was also placed on Merrill and now the patient is constipated and complaining of severe pain and also patient came to [facility] and was admitted for further evaluation and treatment. The patient was found to have a urinary tract infection. The patient also was on Cipro for left toe wound. The patient also on Macrobid currently. The patient also had some mild confusion and because of multiple complex medical issue patient taken to [facility] and admitted to the hospital for further evaluation and treatment. The patient was also found to be in atrial fibrillation with fast ventricular rate. Patient started on Cardizem drip and IV heparin. Being monitored in the ICU at this time. No history of fever, rigors, chills. No history of headache, loss of consciousness, seizures. The patient being followed by Dr. Nova in the outpatient setting. PAST MEDICAL HISTORY: Atrial fibrillation, history of congestive heart failure, history of chronic obstructive pulmonary disease, GERD. Hypertension, DJD, history of rheumatoid arthritis. History of back surgery and degenerative joint disease. Medications prior to admission home medications are: 1. Santyl one application topically daily. 2. Ultram 100 mg b.i.d. p.r.n. 3. Prednisone taper. 4. K-Dur 10 meq p.o. b.i.d. 5. Prilosec 40 mg with breakfast. 6. Lopressor 25 mg q.h.s. 7. Merrill 5 mg q.4 p.r.n. 8. Lasix 80 mg p.o. daily. 9. Vitamin B12 500 mcg p.o. daily. 10. Cipro 250 mg p.o. b.i.d. 11. Vitamin D3 1000 units p.o. daily. 12. Ecotrin 81 mg at bedtime. ALLERGIES: AMOXICILLIN, CEFAZOLIN AND BACTRIM. FAMILY HISTORY: History of congestive heart failure in the family. SOCIAL HISTORY: Previous history of smoking. Occasional alcohol intake. REVIEW OF SYSTEMS: ENT: Diminished vision. Diminished hearing. CARDIOVASCULAR SYSTEM: No angina or palpitations. RESPIRATORY: As mentioned earlier. GI: As mentioned earlier. : No dysuria. Nervous system: No numbness, weakness. ALLERGY/IMMUNOLOGY: No asthma or hayfever. MUSCULOSKELETAL: As mentioned earlier. HEMATOLOGY/ONCOLOGY: No history of anemia. ENDOCRINE: No history of hypothyroidism. CONSTITUTIONAL: As mentioned earlier. Dermatology negative. RHEUMATOLOGY: Negative. PSYCHIATRY: As mentioned earlier. PHYSICAL EXAMINATION: Alert and oriented x2. Pulse 101, blood pressure 110/67, respiratory rate 17. Temperature 97.7. Pulse ox 95% on room air. Pulse is 139 on admission. HEENT: Conjunctivae normal. Oral mucosa moist. CARDIOVASCULAR SYSTEM: S1, S2 muffled. Irregular tachycardic. RESPIRATORY: Breath sounds diminished at the bases. Scattered rhonchi and crackles. ABDOMEN: Soft, nontender. No mass palpable. LEGS: No edema. No swelling. Movements of the right hip is painful. Nervous system: Higher functions as mentioned earlier. Moves all four limbs. No focal deficits. LYMPHATICS: No lymph nodes palpable in the neck, axillae or groin. SKIN: No ulcer, rash or bleeding. LABS: WBC 14.6. Sodium 135, troponin 0.017, 0.325. UA noted. ASSESSMENT: 1. Atrial fibrillation with fast ventricular rate. 2. Troponin 0.325 indicating possible acute non- ST segment elevation myocardial infarction. 3. Acute urinary tract infection with sepsis, present on admission. 4. Acute right hip pain, possible degenerative joint disease. 5. Hyponatremia. 6. Increased WBC. 7. Hypoalbuminemia with mild to moderate protein calorie malnutrition. 8. History of atrial fibrillation. 9. History of congestive heart failure. 10. History of chronic obstructive pulmonary disease. 11. History of gastroesophageal reflux disease. 12. Hypertension, essential. 13. History of degenerative joint disease. 14. History of rheumatoid arthritis. 15. History of PACs. 16. History of esophageal stricture and dilatation. 17. History of prostate cancer. 18. History of nephrolithiasis. 19. History of spinal stenosis. 20. History of gait dysfunction. 21. Change in mental status, metabolic encephalopathy, acute, possibly secondary to urinary tract infection with sepsis. 22. Remote history of nicotine dependence. 23. NO CODE, NO CARDIOPULMONARY RESUSCITATION, NO VENT. RECOMMENDATIONS AND DISCUSSION: In this 89-year-old gentleman who presented with the multiple complex medical issues as mentioned earlier at this time, I recommend to continue current medications, continue current treatment, we will monitor in telemetry, Cardizem drip, IV heparin. Cardiology consultation. I would also recommend broad-spectrum IV antibiotics. PT, OT evaluation possible ECF rehab and symptomatic treatment. Resume the home medications. Orthopedics will be consulted for right hip pain. Guarded prognosis because of multiple complex medical issues. Discussed with the patient and family who understand and agrees. Further recommendations to follow. A copy of forwarded to Dr. Nova who is the primary care physician. FAB
--- NOTE | 2016-08-29 10:31 | P.CRDCN ---
History of Present Illness Consult date: 08/29/16 Requesting physician: Dk Sharif Reason for Consult (text): Arrhythmia Chief complaint: Right hip pain History of present illness: This is a pleasant 89-year-old gentleman who follows regularly with Dr. Raymundo Liriano in the office. He has a known history of hypertension, hyperlipidemia, GERD, prior pacemaker implantation, COPD, rheumatoid arthritis, who presents to the hospital mainly with complaints of severe right hip pain. Patient has had episodes of falls. CAT scan and x-rays were negative for any fractures. Patient had been in the hospital her back pain and was discharged home on [place]. He states he has not moved his bowels for several days and is having some discomfort from that as well. Cardiology consultation was requested because of atrial fibrillation with rapid ventricular response. Upon review of the patient's EKGs and rhythm strips this admission and prior admissions, patient has no evidence of atrial fibrillation, he does have sinus tachycardia with frequent PACs and PVCs. He is currently on a Cardizem drip at 5 mg per hour which we will discontinue, we will increase his dose of beta tahir to 25 mg one tablet by mouth twice a day. We will also discontinue the patient's heparin. White blood cell count 14.6, hemoglobin 13.9, this morning hemoglobin 11.6. Potassium 4.0, BUN 37, creatinine 1.0. TSH 2.3. Troponins 0.1, 0.2, 0.3, 0.2. Upon review of prior admissions, patient always has abnormality in his troponins in this range. Past Medical History Past Medical History: Atrial Fibrillation, Cancer, Heart Failure, COPD, GERD/ Reflux, Hypertension, Osteoarthritis (OA), Rheumatoid Arthritis (RA), Vascular Disorder Additional Past Medical History / Comment(s): PAC's, DJD, UTI, generalized arthritis and pt states RA too, back pain, esophageal stricture with dilation, prostate cancer with surgery and 20 yrs later radiation, urinary incontinence, kidney stones passed himself, bladder stone surgically removed, bilateral numbness and tingling to legs and feet, spinal stenosis, 04/2015 dermatophytosis bilateral feet. History of Any Multi-Drug Resistant Organisms: None Reported Past Surgical History: Back Surgery, Bladder Surgery, Hernia Repair, Orthopedic Surgery, Prostate Surgery Additional Past Surgical History / Comment(s): neck and back surgery, bilateral knee surgery, one total Past Anesthesia/Blood Transfusion Reactions: No Reported Reaction Additional Past Anesthesia/Blood Transfusion Reaction / Comment(s): Pt states he has received blood in the past without reaction. Past Psychological History: No Psychological Hx Reported Additional Psychological History / Comment(s): Pt resides with his spouse. He transfers himself into a wheelchair. He transfers himself to a shower chair. He is independent with his ADLs and manages his own medication. He can drive but spouse now does most of the driving. Retired. Was in the [employer] for a year. No international travel since then. No pets in the home at this time Smoking Status: Former smoker Past Alcohol Use History: Occasional Past Drug Use History: None Reported - Past Family History Mother Family Medical History: Congestive Heart Failure (CHF) Additional Family Medical History / Comment(s): Mother at age 96. Father Family Medical History: No Reported History Additional Family Medical History / Comment(s): Father of a CHI with a fall in his 70's. Medications and Allergies Home Medications Medication Instructions Recorded Confirmed Type Cholecalciferol [Vitamin D3] 1,000 unit PO DAILY 04/21/15 08/28/16 History Cyanocobalamin [Vitamin B-12] 500 mcg PO DAILY 04/21/15 08/28/16 History Aspirin EC [Ecotrin Low Dose] 81 mg PO HS 02/05/16 08/28/16 History Potassium Chloride ER [K-Dur 20] 20 meq PO Q12H 02/05/16 08/28/16 History Metoprolol Tartrate [Lopressor] 25 mg PO HS 06/09/16 08/28/16 History traMADol HCl [Ultram] 100 mg PO BID PRN 06/09/16 08/28/16 History Furosemide [Lasix] 80 mg PO BID 08/24/16 08/28/16 History predniSONE See Taper PO DIRECTED 08/24/16 08/28/16 History Ciprofloxacin HCl [Cipro] 250 mg PO Q12HR 08/28/16 08/28/16 History Collagenase [Santyl] 1 applic TOPICAL DAILY 08/28/16 08/28/16 History HYDROcodone/APAP 5-325MG [[place] 1 tab PO Q4HR PRN 08/28/16 08/28/16 History 5-325] Allergies Allergy/AdvReac Type Severity Reaction Status Date / Time amoxicillin Allergy Unknown Verified 08/28/16 11:17 cefazolin Allergy Rash/Hives Verified 08/28/16 11:17 sulfamethoxazole Allergy Itching Verified 08/28/16 11:17 [From Bactrim] trimethoprim [From Bactrim] Allergy Itching Verified 08/28/16 11:17 Physical Exam Vitals: Vital Signs Temp Pulse Pulse Resp BP BP BP 08/29/16 08:00 97.0 F L 78 16 117/53 08/29/16 03:58 96.8 F L 78 19 112/52 08/29/16 00:00 98.5 F 94 18 95/57 08/28/16 20:00 97.7 F 101 H 17 110/67 08/28/16 16:48 99 F 104 H 18 102/51 08/28/16 14:12 97.3 F L 124 H 16 102/58 08/28/16 10:52 98.2 F 130 H 20 123/71 Pulse Ox 08/29/16 08:00 94 L 08/29/16 03:58 95 08/29/16 00:00 95 08/28/16 20:00 95 08/28/16 16:48 95 08/28/16 14:12 95 08/28/16 10:52 95 Intake and Output 08/28/16 08/29/16 08/29/16 22:59 06:59 14:59 Intake Total 100 1765.463 Output Total 200 Balance 100 1565.463 Intake: Intake, IV Titration 100 1665.463 Amount Diltiazem 125 mg In 60 Sodium Chloride 0.9% 100 ml @ 5 MG/HR 5 mls/hr IV .Q24H ONE Rx#:[id number] Heparin Sodium,Porcine/ 217.063 D5w Pmx 25,000 unit In Dextrose/Water 1 500ml. bag @ 12 UNITS/KG/HR 15. 78 mls/hr IV .Q24H [facility] Rx #:[id number] Levofloxacin 750Mg-D5w 188.4 Pmx 750 mg In Dextrose/ Water 1 150ml.bag @ 100 mls/hr IVPB Q24H [facility] Rx#: [id number] Sodium Chloride 0.9% 1, 100 1200 000 ml @ 100 mls/hr IV . Q10H [facility] Rx#:[id number] Oral 100 Output: Urine 200 Other: Voiding Method Diaper Diaper Diaper # Voids 1 # Bowel Movements 1 Weight 73.5 kg 73.5 kg Patient Weight 08/30/16 06:59 Weight 73.5 kg PHYSICAL EXAMINATION: HEENT: Head is atraumatic, normocephalic. Pupils equal, round. Neck is supple. There is no elevated jugular venous pressure. HEART EXAMINATION: [Heart S1, S2 normal. No murmur or gallop heard.] CHEST EXAINATION:[ Lungs are clear to auscultation and precussion. No chest wall tenderness is noted on palpation or with deep beathing.] BDOMEN: [ Soft, nontender. Bowel sounds are heard. No organomegly noted]. EXTEMITIES:[ 1+ peripheral pulses with trace to 1+ evidence of peripheral edema and no calf tendernss noted]. dressing in place to great toe on left foot. NEROLOGIC [patient is awake, alert and orieted -2.] . Results 08/29/16 06:10 08/28/16 11:52 Cardiac Enzymes 08/28/16 08/28/16 08/28/16 Range/Units 11:52 11:52 18:50 AST 16 L (17-59) U/L CK-MB (CK-2) 1.0 0.9 (0.0-2.4) ng/mL Troponin I 0.178 H* 0.276 H* (0.000-0.034) ng/mL 08/28/16 08/29/16 Range/Units 23:43 06:10 AST (17-59) U/L CK-MB (CK-2) 0.7 0.6 (0.0-2.4) ng/mL Troponin I 0.325 H* 0.288 H* (0.000-0.034) ng/mL Coagulation 08/28/16 08/28/16 08/29/16 Range/Units 11:52 23:43 06:10 PT 11.8 (9.0-12.0) sec APTT 22.1 41.6 H 40.6 H (22.0-30.0) sec CBC 08/28/16 08/29/16 Range/Units 11:52 06:10 WBC 14.6 H 11.0 H (3.8-10.6) k/uL RBC 4.70 4.10 L (4.30-5.90) m/uL Hgb 13.9 11.6 L (13.0-17.5) gm/dL Hct 41.4 36.6 L (39.0-53.0) % Plt Count 161 125 L (150-450) k/uL Comprehensive Metabolic Panel 08/28/16 Range/Units 11:52 Sodium 135 L (137-145) mmol/L Potassium 4.0 (3.5-5.1) mmol/L Chloride 96 L (98-107) mmol/L Carbon Dioxide 30 (22-30) mmol/L BUN 37 H (9-20) mg/dL Creatinine 1.10 (0.66-1.25) mg/dL Glucose 84 (74-99) mg/dL Calcium 9.4 (8.4-10.2) mg/dL AST 16 L (17-59) U/L ALT 36 (21-72) U/L Alkaline Phosphatase 112 (38-126) U/L Total Protein 5.6 L (6.3-8.2) g/dL Albumin 2.8 L (3.5-5.0) g/dL Current Medications Generic Name Dose Route Start Last Admin Trade Name Freq PRN Reason Stop Dose Admin Acetaminophen 650 mg 08/28/16 14:00 Tylenol Tab PO Q6HR PRN Mild Pain or Fever > 100.5 Hydrocodone Bitart/Acetaminophen 1 each 08/28/16 14:00 [place] 5-325 PO Q4HR PRN Moderate Pain Aspirin 81 mg 08/28/16 21:00 08/28/16 23:37 Aspirin PO 81 mg HS [facility] Administration Cholecalciferol 1,000 unit 08/29/16 12:00 Vitamin D3 PO 1200 [facility] Collagenase 1 applic 08/28/16 18:00 08/29/16 08:40 Santyl TOPICAL 1 applic DAILY [facility] Administration Cyanocobalamin 500 mcg 08/29/16 12:00 Vitamin B-12 PO 1200 [facility] Furosemide 80 mg 08/28/16 21:00 08/29/16 08:39 Lasix PO 80 mg BID [facility] Administration Heparin Sodium (Porcine) 0 unit 08/28/16 14:05 Heparin IV PER PROTOCOL PRN Low PTT Protocol Hydromorphone HCl 1 mg 08/28/16 14:00 08/28/16 17:45 Dilaudid IV 1 mg Q3HR PRN Administration Severe Pain Diltiazem HCl 125 mg/ Sodium 125 mls @ 5 mls/hr 08/28/16 13:58 08/28/16 14:29 Chloride IV 08/29/16 13:57 5 mg/hr .Q24H [facility] 5 mls/hr Protocol Administration 5 MG/HR Heparin Sodium/Dextrose 25,000 500 mls @ 15.78 mls/hr 08/28/16 14:15 06:58 unit/ IV Solution IV 16 units/kg/hr .Q24H [facility] 21.04 mls/hr Protocol Titration 12 UNITS/KG/HR Levofloxacin 750 mg/ IV 150 mls @ 100 mls/hr 08/29/16 14:00 Solution IVPB Q24H [facility] Metoprolol Tartrate 25 mg 08/28/16 21:00 08/29/16 02:40 Lopressor PO Not Given HS [facility] Naloxone HCl 0.2 mg 08/28/16 14:00 Narcan IV Q2M PRN Opioid Reversal Ondansetron HCl 4 mg 08/28/16 14:00 Zofran IVP Q8HR PRN Nausea And Vomiting Pantoprazole Sodium 40 mg 08/29/16 09:00 08/29/16 08:39 Protonix IV 40 mg DAILY [facility] Administration Pantoprazole Sodium 40 mg 08/29/16 07:30 08/29/16 08:28 Protonix PO Not Given AC-BRKFST [facility] Potassium Chloride 20 meq 08/28/16 21:00 08/29/16 08:39 K-Dur 20 PO 20 meq Q12H [facility] Administration Intake and Output 08/28/16 08/29/16 08/29/16 22:59 06:59 14:59 Intake Total 100 1765.463 Output Total 200 Balance 100 1565.463 Intake: Intake, IV Titration 100 1665.463 Amount Diltiazem 125 mg In 60 Sodium Chloride 0.9% 100 ml @ 5 MG/HR 5 mls/hr IV .Q24H [facility] Rx#:[id number] Heparin Sodium,Porcine/ 217.063 D5w Pmx 25,000 unit In Dextrose/Water 1 500ml. bag @ 12 UNITS/KG/HR 15. 78 mls/hr IV .Q24H [facility] Rx #:[id number] Levofloxacin 750Mg-D5w 188.4 Pmx 750 mg In Dextrose/ Water 1 150ml.bag @ 100 mls/hr IVPB Q24H [facility] Rx#: [id number] Sodium Chloride 0.9% 1, 100 1200 000 ml @ 100 mls/hr IV . Q10H [facility] Rx#:[id number] Oral 100 Output: Urine 200 Other: Voiding Method Diaper Diaper Diaper # Voids 1 # Bowel Movements 1 Weight 73.5 kg 73.5 kg Patient Weight 08/30/16 06:59 Weight 73.5 kg 08/29/16 06:10 08/28/16 11:52 EKG Interpretations (text) EKG shows a normal sinus rhythm to sinus tachycardia with occasional PACs and PVCs. Right bundle branch block pattern. Assessment and Plan Plan: Assessment and plan #1 right hip pain, patient has history of rheumatoid arthritis and degenerative joint disease. Orthopedic consultation requested. #2 arrhythmia in the form of sinus tachycardia with frequent PACs and PVCs. No evidence of any atrial fibrillation. #3 history of hypertension #4 history of hyperlipidemia #5 acute UTI #6 rheumatoid arthritis #7 mental status changes, could be secondary to acute UTI. #8 abnormal troponins, not consistent with acute coronary syndrome. Patient always has abnormal troponins in this range. Plan Cardiogram with Doppler study was recently performed in the hospital in June which revealed normal left ventricular systolic function at that time. We will repeat an echo on this admission. We will discontinue the IV Cardizem and increase dose of beta tahir to 25 mg one tablet by mouth twice a day. Discontinue IV heparin. DNP note has been reviewed, I agree with a documented findings and plan of care. Patient was seen and examined.
[2016-08-29] MEDS ORDERED: SENNOSIDES-DOCUSATE SODIUM 1 EACH TAB PO PRN (12:55)
[2016-08-29] MEDS: CYANOCOBALAMIN 500 MCG TAB PO SCH (13:22)
[2016-08-29] MEDS: METOPROLOL TARTRATE 25 MG TAB PO SCH (13:22)
[2016-08-29] MEDS: CHOLECALCIFEROL 1,000 UNIT TAB PO SCH (13:22)
[2016-08-29] MEDS: LEVOFLOXACIN 750MG-D5W PMX 750 MG in DEXTROSE/WATER 1 150ML.BAG IVPB SCH (13:23)
[2016-08-29] MEDS: HYDROmorphone 1 MG/ML 1 ML SYRINGE IV PRN (14:53)
--- NOTE | 2016-08-29 15:07 | XR ---
EXAMINATION TYPE: XR chest 1V portable DATE OF EXAM: 08/29/2016 COMPARISON: 06/09/2016 HISTORY: Heart failure chest pain TECHNIQUE: Single frontal view of the chest is obtained. FINDINGS: There is mild linear density at the left lung base. There is no heart failure. There are n o hilar masses. Thoracic aorta is atheromatous. There are chest leads. There is left axillary pacemak er with the lead tips in the right ventricle. Cervical spine fusion surgery is noted. IMPRESSION: Minimal subsegmental atelectasis at the left lung base is new compared to last exam. No heart failure.
--- NOTE | 2016-08-29 16:50 | PN ---
This 89-year-old gentleman was admitted with right hip pain, also had atrial fibrillation with fast ventricular rate. The patient also had evidence of a UTI and elevated troponin also. The patient is being closely monitored at this time. The patient was mildly confused, also. Multiple consultants are following the patient closely. PAST MEDICAL HISTORY: Reviewed. REVIEW OF SYSTEMS: CARDIOVASCULAR: No angina or palpitations. RESPIRATORY: As mentioned earlier. GI: As mentioned earlier. : No new symptoms. Current medications are reviewed and include: 1. Tylenol p.r.n. 2. [place] 5 mg. 3. Aspirin 81 mg. 4. Vitamin D3. 5. Zantac. 6. Vitamin B12. 7. Lasix 80 mg. 8. Dilaudid. 9. Levaquin. 10. Lopressor. 11. Zofran. 12. Protonix. 13. K-Dur. 14. Senokot. PHYSICAL EXAM: The patient is alert and oriented x3. Pulse 78, blood pressure ntd, respirations 16, temperature 97 degrees, pulse ox 94% on 2L. HEENT: Conjunctivae normal. NECK: No jugular venous distension. CARDIOVASCULAR: S1 and S2 muffled. RESPIRATORY: Breath sounds diminished in the bases. A few scattered rhonchi and crackles. ABDOMEN: Soft, nontender. No mass palpable LEGS: Right leg movements are slightly painful. NERVOUS SYSTEM: No focal deficits. LABS: WBC 11. ESR is 43. CRP is 224. Troponin 0.20, 0.325. UA noted. ASSESSMENT: 1. Atrial fibrillation with fast ventricular rate, present on admission. 2. Troponin 0.325, indicating possible acute non-ST segment elevation myocardial infarction, present on admission. 3. Acute urinary tract infection with sepsis, present on admission. 4. Acute right hip and possible degenerative joint disease, acute exacerbation. 5. Hyponatremia. 6. Increased WBC. 7. Hypoalbuminemia with mild to moderate protein-calorie malnutrition. 8. History of atrial fibrillation. 9. History of congestive heart failure. 10. History of chronic obstructive pulmonary disease. 11. History of gastroesophageal reflux disease. 12. Essential hypertension, history. 13. History of degenerative joint disease. 14. History of rheumatoid arthritis. 15. History of premature atrial contractions. 16. History of esophageal dilatation. 17. History of prostate cancer. 18. History of nephrolithiasis. 19. History of spinal stenosis. 20. History of gait dysfunction. 21. Change in mental status, metabolic encephalopathy, acute, possibly secondary to urinary tract infection with sepsis. 22. Remote history of nicotine dependence. 23. NO CODE, NO CARDIOPULMONARY RESUSCITATION, NO VENTILATOR. RECOMMENDATIONS AND DISCUSSION: Recommend to continue current medications. Continue with monitoring and symptomatic treatment. Continue with IV antibiotics. Otherwise, I would also recommend a short course of steroids if okay with Orthopedic Surgery. Otherwise, continue to monitor. Empiric antibiotics, cultures. Further recommendations to follow. MTDD
[2016-08-29] MEDS: ASPIRIN 81 MG CHEW PO SCH (22:23)
[2016-08-30] MEDS: METOPROLOL TARTRATE 25 MG TAB PO SCH ×3 (01:06→23:37)
[2016-08-30] MEDS: HYDROcodone/APAP 5-325MG 1 EACH TAB PO PRN ×2 (01:12→20:49)
[2016-08-30 06:28] LABS: Basophils % (A) 0 %; Eosinophils # (A) 0.2 k/uL (0-0.7); Eosinophils % (A) 1 %; Hypochromasia Slight; MCH 29.8 pg (25.0-35.0); RDW 14.7 % (11.5-15.5)
[2016-08-30 06:30] LABS: CH 28.1; CHCM 32.6; HCT 35.5 % (39.0-53.0); HDW 2.75; HGB 12.3 gm/dL (13.0-17.5); Luc # (Auto) 0.33; Luc % (Auto) 3; Lymphocytes # (A) 0.4 k/uL (1.0-4.8); Lymphocytes % (A) 3 %; MCHC 34.5 g/dL (31.0-37.0); MCV 86.3 fL (80.0-100.0); Mean Platelet Volume 7.5; Monocytes # (A) 0.6 k/uL (0-1.0); Monocytes % (A) 5 %; Neutrophils # (A) 11.3 k/uL (1.3-7.7); Neutrophils % (A) 88 %; RBC 4.12 m/uL (4.30-5.90); WBC 12.8 k/uL (3.8-10.6)
[2016-08-30 06:49] LABS: Anion Gap 9 mmol/L; Blood Urea Nitrogen 28 mg/dL (9-20); Calcium 8.4 mg/dL (8.4-10.2); Carbon Dioxide 29 mmol/L (22-30); Chloride 94 mmol/L (98-107); Glucose 85 mg/dL (74-99); Non-African American GFR(MDRD) >60 (>60 ml/min/1.73 sqM); Potassium 3.5 mmol/L (3.5-5.1); Sodium 132 mmol/L (137-145)
[2016-08-30] MEDS ORDERED: PANTOPRAZOLE 40 MG TABLET PO ONE (09:00)
[2016-08-30] MEDS ORDERED: POTASSIUM CHLORIDE ER 20 MEQ TAB.ER PO ONE (09:00)
[2016-08-30] MEDS ORDERED: METOPROLOL TARTRATE 25 MG TAB ONE (09:00)
[2016-08-30] MEDS ORDERED: FUROSEMIDE 40 MG TAB ONE (09:00)
[2016-08-30] MEDS ORDERED: PANTOPRAZOLE 40 MG/10 ML VIAL ONE (09:00)
[2016-08-30] MEDS: COLLAGENASE 250 UNIT/GM OINTMENT 30 GM TUBE TOPICAL SCH (11:00)
[2016-08-30] MEDS: FUROSEMIDE 80 MG TAB PO SCH ×2 (11:00→23:09)
[2016-08-30] MEDS: PANTOPRAZOLE 40 MG/10 ML VIAL IV SCH (11:01)
[2016-08-30] MEDS: POTASSIUM CHLORIDE ER 20 MEQ TAB.ER PO SCH ×2 (11:01→23:09)
[2016-08-30] MEDS: PANTOPRAZOLE 40 MG TABLET PO SCH (11:02)
[2016-08-30] MEDS: methylPREDNISolone SOD SUCCI 40 MG/ML 1 ML VIAL IV SCH ×3 (11:43→23:10)
[2016-08-30] MEDS: CHOLECALCIFEROL 1,000 UNIT TAB PO SCH (11:43)
[2016-08-30] MEDS: CYANOCOBALAMIN 500 MCG TAB PO SCH (11:43)
--- NOTE | 2016-08-30 12:08 | P.PN ---
Subjective Principal diagnosis: Arrhythmia This is a pleasant 89-year-old gentleman who follows regularly with Dr. Raymundo Liriano in the office. He has a known history of hypertension and hyperlipidemia, prior pacemaker, rheumatoid arthritis. He initially presented to the hospital with severe right hip pain. Patient has been having frequent falls at home cardiology consultation was requested yesterday because of suspected atrial fibrillation. Patient was actually found to be in sinus tachycardia with PACs and PVCs. This morning patient is in a normal sinus rhythm. Blood pressure 100/50 with a heart rate in the 80s, 94% on 2 L of oxygen. Potassium 3.5, hemoglobin 12.3. Objective - Vital Signs Vital signs: Vital Signs Temp 98.5 F 08/30/16 04:00 Pulse 80 08/30/16 11:40 Resp 14 08/30/16 11:40 BP 91/53 08/30/16 11:40 Pulse Ox 96 08/30/16 11:40 Intake & Output 08/29/16 08/30/16 08/30/16 18:59 06:59 18:59 Intake Total 200 Balance 200 Weight 73.5 kg 73 kg 73 kg Intake: Oral 200 Other: Voiding Method Diaper Diaper Diaper # Voids 1 1 # Bowel Movements 1 - Exam PHYSICAL EXAMINATION: HEENT: Head is atraumatic, normocephalic. Pupils equal, round. Neck is supple. There is no elevated jugular venous pressure. HEART EXAMINATION: Heart S1, S2 normal. No murmur or gallop heard. CHEST EXAMINATION: Lungs are clear to auscultation and precussion. No chest wall tenderness is noted on palpation or with deep breathing. ABDOMEN: Soft, nontender. Bowel sounds are heard. No organomegaly noted. EXTREMITIES: 2+ peripheral pulses with evidence of peripheral edema and no calf tenderness noted. NEUROLOGIC [patient is awake, alert and oriented -2.] . - Labs CBC & Chem 7: 08/30/16 05:32 08/30/16 05:32 Labs: Abnormal Lab Results - Last 24 Hours (Table) 08/29/16 08/30/16 08/30/16 Range/Units 06:10 05:32 05:32 WBC 12.8 H (3.8-10.6) k/uL RBC 4.12 L (4.30-5.90) m/uL Hgb 12.3 L (13.0-17.5) gm/dL Hct 35.5 L (39.0-53.0) % Plt Count 123 L (150-450) k/uL Neutrophils # 11.3 H (1.3-7.7) k/uL Lymphocytes # 0.4 L (1.0-4.8) k/uL ESR 43 H (0-15) mm/hr Sodium 132 L (137-145) mmol/L Chloride 94 L (98-107) mmol/L BUN 28 H (9-20) mg/dL Microbiology - Last 24 Hours (Table) 08/28/16 13:41 Urine Culture - Preliminary Urine,Catheterized Gram Neg Bacilli 08/28/16 11:52 Blood Culture - Preliminary Blood No Growth after 24 hours Assessment and Plan Plan: Assessment and plan #1 right hip pain, patient has history of rheumatoid arthritis and degenerative joint disease. Orthopedic consultation requested. #2 arrhythmia in the form of sinus tachycardia with frequent PACs and PVCs. No evidence of any atrial fibrillation. #3 history of hypertension #4 history of hyperlipidemia #5 acute UTI #6 rheumatoid arthritis #7 mental status changes, could be secondary to acute UTI. #8 abnormal troponins, not consistent with acute coronary syndrome. Patient always has abnormal troponins in this range. Plan Patient today is hemodynamically stable. We'll continue with his current medications. Obtain repeat echocardiogram with Doppler study. DNP note has been reviewed, I agree with a documented findings and plan of care. Patient was seen and examined.
--- NOTE | 2016-08-30 13:01 | P.PN ---
Subjective Principal diagnosis: Right hip pain This is an 89-year-old male who is admitted for right hip pain. Patient states his hip pain has improved slightly since yesterday. Patient states he still has right hip pain with movement. Patient denies any new complaints today. Objective - Vital Signs Vital signs: Vital Signs Temp 98.5 F 08/30/16 04:00 Pulse 87 08/30/16 04:00 Resp 19 08/30/16 04:00 BP 95/50 08/30/16 04:00 Pulse Ox 95 08/30/16 04:00 Intake & Output 08/29/16 08/30/16 08/30/16 18:59 06:59 18:59 Intake Total 200 Balance 200 Weight 73.5 kg 73 kg Intake: Oral 200 Other: Voiding Method Diaper Diaper # Voids 1 # Bowel Movements 1 - Exam On exam there is tenderness to palpation over the lateral aspect of the right hip. There is erythema over the lateral aspect of the right hip with pitting edema in this area. There is pain to the right hip with range of motion of the right lower extremity. Patient has limited active and passive range of motion of the right lower extremity due to pain. Calf is soft and nontender. 1+ pitting edema to bilateral lower extremities. Dorsalis pedis pulses are 1+ bilaterally. - Labs CBC & Chem 7: 08/30/16 05:32 08/30/16 05:32 Labs: Abnormal Lab Results - Last 24 Hours (Table) 08/29/16 08/29/16 08/29/16 Range/Units 06:10 06:10 06:10 WBC (3.8-10.6) k/uL RBC (4.30-5.90) m/uL Hgb (13.0-17.5) gm/dL Hct (39.0-53.0) % Plt Count (150-450) k/uL Neutrophils # (1.3-7.7) k/uL Lymphocytes # (1.0-4.8) k/uL ESR 43 H (0-15) mm/hr Sodium (137-145) mmol/L Chloride (98-107) mmol/L BUN (9-20) mg/dL Total Creatine Kinase <20 L (55-170) U/L Troponin I 0.288 H* (0.000-0.034) ng/mL C-Reactive Protein 224.9 H (<10.0) mg/L 08/30/16 08/30/16 Range/Units 05:32 05:32 WBC 12.8 H (3.8-10.6) k/uL RBC 4.12 L (4.30-5.90) m/uL Hgb 12.3 L (13.0-17.5) gm/dL Hct 35.5 L (39.0-53.0) % Plt Count 123 L (150-450) k/uL Neutrophils # 11.3 H (1.3-7.7) k/uL Lymphocytes # 0.4 L (1.0-4.8) k/uL ESR (0-15) mm/hr Sodium 132 L (137-145) mmol/L Chloride 94 L (98-107) mmol/L BUN 28 H (9-20) mg/dL Total Creatine Kinase (55-170) U/L Troponin I (0.000-0.034) ng/mL C-Reactive Protein (<10.0) mg/L Microbiology - Last 24 Hours (Table) 08/28/16 13:41 Urine Culture - Preliminary Urine,Catheterized Gram Neg Bacilli 08/28/16 11:52 Blood Culture - Preliminary Blood No Growth after 24 hours Assessment and Plan (1) Right hip pain Status: Acute Plan: #1. Continue bedrest #2. MRI of the right hip is pending. #3. K pad to the right hip as tolerated #4. Appreciate input from medicine. #5. Will follow the patient closely.
[2016-08-30] MEDS: LEVOFLOXACIN 750MG-D5W PMX 750 MG in DEXTROSE/WATER 1 150ML.BAG IVPB SCH (15:21)
[2016-08-30] MEDS: INSULIN LISPRO (humaLOG) 300 UNIT/3 ML VIAL SQ SCH ×2 (18:29→23:11)
--- NOTE | 2016-08-30 21:03 | PN ---
This 89-year-old gentleman who was admitted with atrial fibrillation with fast ventricular rate also had troponin 0.32 indicating acute non-ST segment. The patient also had UTI. Gram negative bacilli growing from the culture. No chest pain. No palpitations. No fever. On exam, alert and oriented x2. Pulse is 89. Blood pressure 95/35. Respiratory rate 14. Temperature normal. Pulse ox 92% on 2 liters. HEENT: Conjunctivae normal. NECK: No jugular venous distention. CARDIOVASCULAR: S1 S2, muffled. RESPIRATORY: breath sounds diminished at the bases. A few scattered rhonchi. ABDOMEN: Soft, nontender. Legs: No edema, no swelling. Nervous system: No focal deficits. LABS: WBC is 12.8, hemoglobin 12.3 and sodium is 132, troponin 0.288 and 0.325. ASSESSMENT: 1. Atrial fibrillation with fast ventricular rate, present on admission. 2. Troponin 0.325 indicating possible acute non-ST segment elevation myocardial infarction present on admission. 3. Acute urinary tract infection with sepsis present on admission. 4. Acute right hip pain, possible degenerative joint disease, acute exacerbation. 5. Hyponatremia. 6. Increased WBC. 7. Hypoalbuminemia with mild to moderate protein calorie malnutrition. 8. History of atrial fibrillation. 9. History of congestive heart failure. 10. History of chronic obstructive pulmonary disease. 11. History of gastroesophageal reflux disease. 12. Essential hypertension history. 13. History of degenerative joint disease. 14. History rheumatoid arthritis. 15. History of premature atrial contractions. 16. History of esophageal dilatation. 17. History of prostate cancer. 18. History of nephrolithiasis. 20. History of gait dysfunction. 21. History of change in mental status, metabolic encephalopathy, acute, possibly secondary to urinary tract infection with sepsis, present on admission. 22. Remote history of nicotine dependence. 23. NO CODE NO CPR, NO VENT. RECOMMENDATIONS AND DISCUSSION: Recommend to continue current medications. Continue symptomatic treatment. Otherwise, at this time, I would recommend to continue the current medications, symptomatic treatment, continue empiric antibiotics, empiric steroids, also. Otherwise, I would also recommend, monitor the blood sugars closely. The pain is improving significantly. PT, OT evaluation. Otherwise, continue the rest of medications. Await for the final reports of the antibiotics. Guarded prognosis. Further recommendations to follow. [facility]
[2016-08-30 21:13] LABS: Glucose,Whole Blood 240 mg/dL (75-99)
[2016-08-30] MEDS: ASPIRIN 81 MG CHEW PO SCH (23:09)
[2016-08-31 05:59] LABS: Glucose,Whole Blood 169 mg/dL (75-99)
[2016-08-31 06:24] LABS: Basophils % (A) 0 %; CH 27.8; CHCM 32.1; Eosinophils % (A) 0 %; HDW 2.74; HGB 11.9 gm/dL (13.0-17.5); Hypochromasia Slight; Luc # (Auto) 0.07; Luc % (Auto) 1; Lymphocytes # (A) 0.3 k/uL (1.0-4.8); Lymphocytes % (A) 2 %; MCH 28.8 pg (25.0-35.0); MCHC 33.2 g/dL (31.0-37.0); MCV 86.8 fL (80.0-100.0); Mean Platelet Volume 8.3; Monocytes # (A) 0.2 k/uL (0-1.0); Monocytes % (A) 1 %; Neutrophils % (A) 96 %; RBC 4.14 m/uL (4.30-5.90); RDW 14.6 % (11.5-15.5); WBC 13.5 k/uL (3.8-10.6); WBC (Perox) 14.82
[2016-08-31 06:36] LABS: Anion Gap 8 mmol/L; Blood Urea Nitrogen 35 mg/dL (9-20); Calcium 8.4 mg/dL (8.4-10.2); Carbon Dioxide 30 mmol/L (22-30); Chloride 95 mmol/L (98-107); Glucose 174 mg/dL (74-99); Non-African American GFR(MDRD) >60 (>60 ml/min/1.73 sqM); Potassium 3.9 mmol/L (3.5-5.1); Sodium 133 mmol/L (137-145)
[2016-08-31] MEDS: methylPREDNISolone SOD SUCCI 40 MG/ML 1 ML VIAL IV SCH ×3 (06:49→22:07)
[2016-08-31] MEDS: INSULIN LISPRO (humaLOG) 300 UNIT/3 ML VIAL SQ SCH ×4 (06:49→22:09)
[2016-08-31] MEDS: PANTOPRAZOLE 40 MG TABLET PO SCH (06:50)
[2016-08-31] MEDS: FUROSEMIDE 80 MG TAB PO SCH ×2 (08:22→22:07)
[2016-08-31] MEDS: METOPROLOL TARTRATE 25 MG TAB PO SCH ×2 (08:22→22:07)
[2016-08-31] MEDS: POTASSIUM CHLORIDE ER 20 MEQ TAB.ER PO SCH ×2 (08:22→22:08)
[2016-08-31] MEDS: CYANOCOBALAMIN 500 MCG TAB PO SCH (08:22)
[2016-08-31] MEDS: PANTOPRAZOLE 40 MG/10 ML VIAL IV SCH (08:22)
[2016-08-31] MEDS: CHOLECALCIFEROL 1,000 UNIT TAB PO SCH (08:23)
[2016-08-31] MEDS: COLLAGENASE 250 UNIT/GM OINTMENT 30 GM TUBE TOPICAL SCH (08:34)
--- NOTE | 2016-08-31 09:26 | P.PN ---
Subjective Principal diagnosis: Right hip pain This is an 89-year-old male who is admitted for right hip pain. Patient states his hip pain has improved except for with movement of the right lower extremity. Patient denies any worsening symptoms of hip pain. Patient denies any new complaints today. Objective - Vital Signs Vital signs: Vital Signs Temp 97.8 F 08/31/16 08:00 Pulse 96 08/31/16 08:00 Resp 18 08/31/16 08:00 BP 114/61 08/31/16 08:00 Pulse Ox 96 08/31/16 08:00 Intake & Output 08/30/16 08/31/16 08/31/16 18:59 06:59 18:59 Intake Total 200 Output Total 400 Balance -400 200 Weight 73 kg 71 kg Intake: Oral 200 Output: Urine 400 Other: Voiding Method Diaper Diaper Diaper # Voids 1 # Bowel Movements 1 - Exam On exam there is tenderness to palpation over the lateral aspect of the right hip. There is mild erythema over the lateral aspect of the right hip that has improved slightly since yesterday. Patient continues to have pitting edema to the right hip. There is pain to the right hip with range of motion of the right lower extremity. Calf is soft and nontender. 1+ pitting edema to bilateral lower extremities. Dorsalis pedis pulses are 1+ bilaterally. - Labs CBC & Chem 7: 08/31/16 05:51 08/31/16 05:51 Labs: Abnormal Lab Results - Last 24 Hours (Table) 08/30/16 08/31/16 08/31/16 Range/Units 20:51 05:51 05:51 WBC 13.5 H (3.8-10.6) k/uL RBC 4.14 L (4.30-5.90) m/uL Hgb 11.9 L (13.0-17.5) gm/dL Hct 36.0 L (39.0-53.0) % Plt Count 135 L (150-450) k/uL Neutrophils # 13.0 H (1.3-7.7) k/uL Lymphocytes # 0.3 L (1.0-4.8) k/uL Sodium 133 L (137-145) mmol/L Chloride 95 L (98-107) mmol/L BUN 35 H (9-20) mg/dL Glucose 174 H (74-99) mg/dL POC Glucose (mg/dL) 240 H (75-99) mg/dL 08/31/16 Range/Units 05:55 WBC (3.8-10.6) k/uL RBC (4.30-5.90) m/uL Hgb (13.0-17.5) gm/dL Hct (39.0-53.0) % Plt Count (150-450) k/uL Neutrophils # (1.3-7.7) k/uL Lymphocytes # (1.0-4.8) k/uL Sodium (137-145) mmol/L Chloride (98-107) mmol/L BUN (9-20) mg/dL Glucose (74-99) mg/dL POC Glucose (mg/dL) 169 H (75-99) mg/dL Microbiology - Last 24 Hours (Table) 08/28/16 13:41 Urine Culture - Final Urine,Catheterized Escherichia coli 08/28/16 11:52 Blood Culture - Preliminary Blood No Growth after 48 hours Assessment and Plan (1) Right hip pain Status: Acute Plan: #1. Continue bedrest #2. MRI of the right hip is pending. #3. K pad to the right hip as tolerated #4. Appreciate input from medicine. #5. Will follow the patient closely.
[2016-08-31] MEDS: HYDROmorphone 1 MG/ML 1 ML SYRINGE IV PRN (11:20)
[2016-08-31 11:43] LABS: Hemoglobin A1C 6.2 % (4.2-6.1)
[2016-08-31 12:04] LABS: Glucose,Whole Blood 232 mg/dL (75-99)
[2016-08-31] MEDS: LEVOFLOXACIN 750MG-D5W PMX 750 MG in DEXTROSE/WATER 1 150ML.BAG IVPB SCH (13:09)
--- NOTE | 2016-08-31 14:56 | CDI ---
In responding to this query, please exercise your independent professional judgment. The [facility] Coding Staff and Clinical Documentation Specialists appreciate your assistance in clarifying documentation, maintaining compliance with coding guidelines, accurately documenting patients condition and capturing severity of illness. The fact that a question is asked does not imply that any particular answer is desired or expected. Communication forms are a method of clarifying documentation and are not made part of the Legal Health Record. Thank you in advance for your clarification. Last Revision, January 2015 Janeen rFench [address] [place] [address] Documentation Clarification Form Date: 08/31/2016 2:50:00 PM From: Salinas Christianson, RN, BSN, CDI, CCDS Admit Date: 08/28/2016 2:01:00 PM Patient Name: Marshall Buitrago Visit Number: [id number] Dr. Dk Sharif: Conflicting documentation has been found in the medical record. "Troponin 0.325 indicating possible acute NSTEMI" is documented your H&P and progress notes. Cardiology documents "abnormal troponins, not consistent with acute coronary syndrome, pt always has abnormal troponins in this range". Patient History/Risk Factors: 89 yo male with a history of CHF, HTN, Afib and PPM presents with c/o right hip pain and constipation. Also being treated for UTI with sepsis POA. Clinical Indicators: Troponin: 0.178/0.276/0.325/0.288 EKG Results: "Afib w/RVR with premature ventricular or aberrantly conducted complexes" @ 111 bpm Treatment: Heparin bolus/gtt, Metoprolol, ASA, tele, Cardizem gtt Consult: cardiology In your opinion what is the most clinically appropriate diagnosis for this patient? Possible NSTEMI (POA or ruled out) Abnormal troponins, not consistent with acute coronary syndrome OTHER explanation of clinical findings Unable to determine (no explanation for clinical findings) Please document in your progress notes and discharge summary in order to capture severity of illness and risk of mortality. Include clinical findings that support your diagnosis. FYI: Press F11 to launch patient chart. _x___ Place X here if this finding has no clinical significance, is not applicable or if you are not able to provide any additional documentation. FAB
--- NOTE | 2016-08-31 15:07 | CDI ---
In responding to this query, please exercise your independent professional judgment. The [facility] Coding Staff and Clinical Documentation Specialists appreciate your assistance in clarifying documentation, maintaining compliance with coding guidelines, accurately documenting patients condition and capturing severity of illness. The fact that a question is asked does not imply that any particular answer is desired or expected. Communication forms are a method of clarifying documentation and are not made part of the Legal Health Record. Thank you in advance for your clarification. Last Revision, June 2016 Janeen [address] [facility] [place] [address] Documentation Clarification Form Date: 08/31/2016 2:56:00 PM From: Salinas Christianson, RN, BSN, CDI, CCDS Admit Date: 08/28/2016 2:01:00 PM Patient Name: Marshall Buitrago Visit Number: [id number] Dr. Dk Sharif: "Acute UTI w/sepsis POA" is documented in the H&P and your progress notes. History/Risk Factors: 89 yo male who is wheelchair bound, presents with c/o right hip pain after falling four days ago. He has a history of prostate cancer , OA, RA, CHF and back pain. He is also noted to have acute mental status changes/acute metabolic encephalopathy secondary to acute UTI. Clinical Indicators: WBC: 14.6 Lactic acid: 1.0 Blood cultures: No growth after 72 hours Vitals signs on admission: 123/71, 130, 20, 98.2-99.0, 95% RA Other Clinical Indicators: Urine culture: +E.Coli Treatment: Antibiotics: Meropenem, Levaquin IVF @100cc/hr In your professional opinion, please clarify if these findings signify one of the following conditions, and cause, if known: Sepsis Severe Sepsis Unable to determine Other, please specify * Identify the (suspected) organism: * Link or clarify if there is associated (due to/with): - Organ failure - Shock Please document in your progress notes and discharge summary in order to capture severity of illness and risk of mortality. Include clinical findings that support your diagnosis. FYI: Press F11 to launch patient chart. Place X here if this finding has no clinical significance, is not applicable or if you are not able to provide any additional documentation. MTDD
--- NOTE | 2016-08-31 15:24 | P.CON ---
Consult Note - . Consult date: 08/31/16 Assessment/Plan:: Patient seen and examined, current admission reviewed and medical/surgical/ family/social history reviewed along with ALLERGIES and imaging scans. Mr. Flores is an 89-year-old male with a long history of rheumatoid arthritis per patient who presents to the hospital with right-sided hip pain. He underwent x- rays and CT scans in the emergency room approximately 1 week ago demonstrating osteoarthritis. Patient was seen by orthopedic service and deemed not a candidate for acute surgical intervention at this time. He has been taking Calhoun for some time for his rheumatoid arthritis and was prescribe steroids when he was seeing a pain management physician in [place] and is consistently been on prednisone 10 mg for the last 5 years. He notes a history of easy bruising and bleeding and also relates a history of swelling in his right hip. He is currently being given IV Dilaudid and Calhoun's in the hospital as isn't the Calhoun as are not helping him at all but the IV Dilaudid is. The pain is not present at rest and occurs only when the patient moves. When asked to localize the pain, the patient points to his right hip laterally and not to the groin or to the back. Physical exam demonstrates a well-developed male who appears of stated age. He does have several large ecchymoses on both arms. There is tenderness to palpation over the right trochanteric bursa along with pitting edema in this area as well. With internal rotation of the hip patient does endorse pain over the trochanteric bursa as well on the right side, and denies any pain in the groin. The patient is also currently being treated for urinary tract infection with antibiotics. I had a discussion with Dr. Sharif regarding the appropriateness of this patient for a trochanteric bursa steroid injection, and he feels it is appropriate to proceed. Plan: 1. I will order serum SANDRO and rheumatoid factor to see if the patient does have rheumatoid arthritis as he stated. Rheumatology consult may be indicated. 2. I will change his Calhoun to low-dose Percocet; his liver function is normal, and I do not expect him to be on chronic narcotic therapy. 3. After some discussion with the other physicians, I will schedule the patient for a right trochanteric bursa steroid injection to be done under fluoroscopy. This procedure will be completed within the next 48 hours. Please call back with any further questions. I spent a total of 45 minutes in the care of this patient in records review, patient history and examination, discussion with family, and discussion with nursing staff and other physicians.
[2016-08-31 15:55] VITALS: RESP 18
--- NOTE | 2016-08-31 16:16 | P.PN ---
Subjective Principal diagnosis: Arrhythmia This is a pleasant 89-year-old gentleman who follows regularly with Dr. Raymundo Liriano in the office. He has a known history of hypertension and hyperlipidemia, prior pacemaker, rheumatoid arthritis. He initially presented to the hospital with severe right hip pain. Patient has been having frequent falls at home cardiology consultation was requested yesterday because of suspected atrial fibrillation. Patient was actually found to be in sinus tachycardia with PACs and PVCs. This morning patient is in a normal sinus rhythm. Sitting up in the chair at bedside. Blood pressure 100/50 with a heart rate in the 80s, 94% on 2 L of oxygen. Objective - Vital Signs Vital signs: Vital Signs Temp 97.0 F L 08/31/16 15:53 Pulse 88 08/31/16 15:55 Resp 18 08/31/16 15:55 BP 96/52 08/31/16 15:53 Pulse Ox 98 08/31/16 15:53 Intake & Output 08/30/16 08/31/16 08/31/16 18:59 06:59 18:59 Intake Total 680 Output Total 400 Balance -400 680 Weight 73 kg 71 kg Intake: IV 240 .9 @ 20 240 Oral 440 Output: Urine 400 Other: Voiding Method Diaper Diaper Diaper # Voids 1 1 # Bowel Movements 1 - Exam PHYSICAL EXAMINATION: HEENT: Head is atraumatic, normocephalic. Pupils equal, round. Neck is supple. There is no elevated jugular venous pressure. HEART EXAMINATION: Heart S1, S2 normal. No murmur or gallop heard. CHEST EXAMINATION: Lungs are clear to auscultation and precussion. No chest wall tenderness is noted on palpation or with deep breathing. ABDOMEN: Soft, nontender. Bowel sounds are heard. No organomegaly noted. EXTREMITIES: 2+ peripheral pulses with evidence of peripheral edema and no calf tenderness noted. NEUROLOGIC [patient is awake, alert and oriented -2.] . - Labs CBC & Chem 7: 08/31/16 05:51 08/31/16 05:51 Labs: Abnormal Lab Results - Last 24 Hours (Table) 08/30/16 08/30/16 08/31/16 Range/Units 05:32 20:51 05:51 WBC 13.5 H (3.8-10.6) k/uL RBC 4.14 L (4.30-5.90) m/uL Hgb 11.9 L (13.0-17.5) gm/dL Hct 36.0 L (39.0-53.0) % Plt Count 135 L (150-450) k/uL Neutrophils # 13.0 H (1.3-7.7) k/uL Lymphocytes # 0.3 L (1.0-4.8) k/uL Sodium (137-145) mmol/L Chloride (98-107) mmol/L BUN (9-20) mg/dL Glucose (74-99) mg/dL POC Glucose (mg/dL) 240 H (75-99) mg/dL Hemoglobin A1c 6.2 H (4.2-6.1) % 08/31/16 08/31/16 08/31/16 Range/Units 05:51 05:55 12:00 WBC (3.8-10.6) k/uL RBC (4.30-5.90) m/uL Hgb (13.0-17.5) gm/dL Hct (39.0-53.0) % Plt Count (150-450) k/uL Neutrophils # (1.3-7.7) k/uL Lymphocytes # (1.0-4.8) k/uL Sodium 133 L (137-145) mmol/L Chloride 95 L (98-107) mmol/L BUN 35 H (9-20) mg/dL Glucose 174 H (74-99) mg/dL POC Glucose (mg/dL) 169 H 232 H (75-99) mg/dL Hemoglobin A1c (4.2-6.1) % Microbiology - Last 24 Hours (Table) 08/28/16 11:52 Blood Culture - Preliminary Blood No Growth after 72 hours 08/28/16 13:41 Urine Culture - Final Urine,Catheterized Escherichia coli Assessment and Plan Plan: Assessment and plan #1 right hip pain, patient has history of rheumatoid arthritis and degenerative joint disease. Orthopedic consultation requested. #2 arrhythmia in the form of sinus tachycardia with frequent PACs and PVCs. No evidence of any atrial fibrillation. #3 history of hypertension #4 history of hyperlipidemia #5 acute UTI #6 rheumatoid arthritis #7 mental status changes, could be secondary to acute UTI. #8 abnormal troponins, not consistent with acute coronary syndrome. Patient always has abnormal troponins in this range. Plan Patient today is hemodynamically stable. We'll continue with his current medications. We will follow him along with you now on an as-needed basis only, please don't hesitate to call with any questions. DNP note has been reviewed, I agree with a documented findings and plan of care. Patient was seen and examined.
[2016-08-31] MEDS: oxyCODONE-APAP 5-325MG 1 EACH TAB PO PRN ×2 (16:23→23:37)
[2016-08-31] MEDS: MEROPENEM 2 GM in SODIUM CHLORIDE 0.9% 100 ML IVPB SCH ×2 (16:24→23:37)
[2016-08-31 16:56] LABS: Glucose,Whole Blood 188 mg/dL (75-99)
--- NOTE | 2016-08-31 18:04 | PN ---
DATE OF SERVICE: 08/31/2016 This 89-year-old gentleman was admitted with atrial fibrillation, fast ventricular rate, has been closely monitored. The patient also had elevated troponin. The patient also had UTI and multiple consultants are following the patient closely including Orthopedic Surgery. The urine culture showed Escherichia coli which is resistant to multiple organisms. The patient is on Levaquin. The patient is allergic to multiple other medications also. PHYSICAL EXAMINATION: Patient is alert and oriented x3. Pulse is 120, blood pressure 101/66, respirations 20, temperature 97.4, pulse ox 97% on 2-L. HEENT: Conjunctivae normal. NECK: No jugular venous distention. CARDIOVASCULAR: S1 and S2. RESPIRATORY: Breath sounds diminished at the bases. No rhonchi, no crackles. ABDOMEN: Soft, nontender. No mass palpable. LEGS: No edema. NERVOUS SYSTEM: No focal deficits. LABS: WBC 13, hemoglobin 11.3, sodium 133. ASSESSMENT: 1. Atrial fibrillation with fast ventricular rate present on admission. 2. Urinary tract infection with sepsis, Escherichia coli resistant present on admission. 3. Troponin 0.324, indicating possible acute non- ST segment elevation/myocardial infarction, present on admission. 4. Acute right hip and possible degenerative joint disease, acute exacerbation, present on admission. 5. Hyponatremia. 6. Increased WBC. 7. Hypoalbuminemia with mild to moderate protein calorie malnutrition. 8. History of atrial fibrillation, chronic. 9. History of congestive heart failure. 10. History of chronic obstructive pulmonary disease. 11. History of gastroesophageal reflux disease. 12. Essential hypertension. 13. History of degenerative joint disease. 14. History of rheumatoid arthritis. 15. History of PACs. 16. History of esophageal dilatation. 17. History of prostate cancer. 18. History of nephrolithiasis. 19. History of gait dysfunction. 20. History of change in mental status, metabolic encephalopathy, acute, possibly secondary from urinary tract infection with sepsis, present on admission. 21. Remote history of nicotine dependence. 22. NO CODE, NO CARDIOPULMONARY RESUSCITATION, NO VENT. RECOMMENDATIONS AND DISCUSSION: In this 89-year-old gentleman who presented with multiple complex medical issues, will monitor the patient closely. Continue the current medications. Continue with symptomatic treatment. Otherwise at this time I recommend initiate meropenem. Continue to monitor. PT, OT evaluation. Guarded prognosis. Further recommendations to follow.
--- NOTE | 2016-08-31 19:11 | PN ---
DATE OF SERVICE: 08/31/2016 ADDENDUM: Please add: Urinary tract infection with sepsis secondary to E. coli.
[2016-08-31 20:52] LABS: Glucose,Whole Blood 160 mg/dL (75-99)
[2016-08-31] MEDS: ASPIRIN 81 MG CHEW PO SCH (22:06)
[2016-09-01] MEDS: INSULIN LISPRO (humaLOG) 300 UNIT/3 ML VIAL SQ SCH ×2 (06:06→12:53)
[2016-09-01] MEDS: PANTOPRAZOLE 40 MG TABLET PO SCH (06:06)
[2016-09-01 06:16] LABS: Glucose,Whole Blood 136 mg/dL (75-99)
[2016-09-01 06:31] LABS: Basophils % (A) 0 %; CH 28.1; CHCM 31.6; Eosinophils % (A) 0 %; HCT 36.3 % (39.0-53.0); HDW 2.74; HGB 11.5 gm/dL (13.0-17.5); Hypochromasia Slight; Luc # (Auto) 0.08; Luc % (Auto) 1; Lymphocytes # (A) 0.3 k/uL (1.0-4.8); Lymphocytes % (A) 2 %; MCH 28.1 pg (25.0-35.0); MCHC 31.6 g/dL (31.0-37.0); MCV 89.1 fL (80.0-100.0); Monocytes # (A) 0.3 k/uL (0-1.0); Monocytes % (A) 2 %; Neutrophils # (A) 16.1 k/uL (1.3-7.7); Neutrophils % (A) 96 %; RBC 4.08 m/uL (4.30-5.90); RDW 14.6 % (11.5-15.5); WBC 16.9 k/uL (3.8-10.6); WBC (Perox) 18.39
[2016-09-01 06:35] LABS: Anion Gap 7 mmol/L; Blood Urea Nitrogen 45 mg/dL (9-20); Calcium 8.8 mg/dL (8.4-10.2); Carbon Dioxide 32 mmol/L (22-30); Chloride 96 mmol/L (98-107); Glucose 137 mg/dL (74-99); Non-African American GFR(MDRD) >60 (>60 ml/min/1.73 sqM); Sodium 135 mmol/L (137-145)
[2016-09-01 06:37] LABS: Rheumatoid Factor, Qnt 18 IU/mL (<12)
[2016-09-01 07:38] LABS: Glucose,Whole Blood 121 mg/dL (75-99)
[2016-09-01] MEDS: MEROPENEM 2 GM in SODIUM CHLORIDE 0.9% 100 ML IVPB SCH ×2 (08:01→16:42)
[2016-09-01] MEDS: methylPREDNISolone SOD SUCCI 40 MG/ML 1 ML VIAL IV SCH (08:02)
[2016-09-01] MEDS: COLLAGENASE 250 UNIT/GM OINTMENT 30 GM TUBE TOPICAL SCH (08:02)
[2016-09-01] MEDS: FUROSEMIDE 80 MG TAB PO SCH (08:03)
[2016-09-01] MEDS: METOPROLOL TARTRATE 25 MG TAB PO SCH ×2 (08:03→08:08)
[2016-09-01] MEDS: POTASSIUM CHLORIDE ER 20 MEQ TAB.ER PO SCH (08:03)
[2016-09-01] MEDS: oxyCODONE-APAP 5-325MG 1 EACH TAB PO PRN (08:04)
[2016-09-01] MEDS: HYDROmorphone 1 MG/ML 1 ML SYRINGE IV PRN (09:49)
[2016-09-01 11:30] VITALS: BMI 24.5
--- NOTE | 2016-09-01 11:44 | P.GSCN ---
<Charlee Pichardo - Last Filed: 09/01/16 11:36> History of Present Illness Consult date: 09/01/16 Reason for Consult: Left great toe ulcer treatment, patient known to this service. Requesting physician: Dk Sharif History of present illness: This 89-year-old gentleman presented to the emergency department with multiple complaints including right hip pain post fall, debility which has been increasing and he has been unable to bear weight getting out of his wheelchair, uncontrolled pain, constipation, urinary tract infection, and mental status decline, and he was noticed to be in A. fib RVR.. His family feels they're no longer able to care for him and he will be discharged to [facility]. Dr. Lara was consulted for treatment recommendations for his left great toe ulcer as the patient is known to his service and follows in the wound care clinic. Review of Systems 14 point review systems was completed and was negative except as noted. Past Medical History Past Medical History: Atrial Fibrillation, Cancer, Heart Failure, COPD, GERD/ Reflux, Hypertension, Osteoarthritis (OA), Rheumatoid Arthritis (RA), Vascular Disorder Additional Past Medical History / Comment(s): PAC's, DJD, UTI, generalized arthritis and pt states RA too, back pain, esophageal stricture with dilation, prostate cancer with surgery and 20 yrs later radiation, urinary incontinence, kidney stones passed himself, bladder stone surgically removed, bilateral numbness and tingling to legs and feet, spinal stenosis, 04/2015 dermatophytosis bilateral feet. History of Any Multi-Drug Resistant Organisms: None Reported Past Surgical History: Back Surgery, Bladder Surgery, Hernia Repair, Orthopedic Surgery, Prostate Surgery Additional Past Surgical History / Comment(s): neck and back surgery, bilateral knee surgery, one total Past Anesthesia/Blood Transfusion Reactions: No Reported Reaction Additional Past Anesthesia/Blood Transfusion Reaction / Comm: Pt states he has received blood in the past without reaction. Past Psychological History: No Psychological Hx Reported Additional Psychological History / Comment(s): Pt resides with his spouse. He transfers himself into a wheelchair. He transfers himself to a shower chair. He is independent with his ADLs and manages his own medication. He can drive but spouse now does most of the driving. Retired. Was in the [employer] for a year. No international travel since then. No pets in the home at this time Smoking Status: Former smoker Past Alcohol Use History: Occasional Past Drug Use History: None Reported - Past Family History Mother Family Medical History: Congestive Heart Failure (CHF) Additional Family Medical History / Comment(s): Mother at age 96. Father Family Medical History: No Reported History Additional Family Medical History / Comment(s): Father of a CHI with a fall in his 70's. Medications and Allergies Home Medications Medication Instructions Recorded Confirmed Type Cholecalciferol [Vitamin D3] 1,000 unit PO DAILY 04/21/15 08/28/16 History Cyanocobalamin [Vitamin B-12] 500 mcg PO DAILY 04/21/15 08/28/16 History Aspirin EC [Ecotrin Low Dose] 81 mg PO HS 02/05/16 08/28/16 History Potassium Chloride ER [K-Dur 20] 20 meq PO Q12H 02/05/16 08/28/16 History Furosemide [Lasix] 80 mg PO BID 08/24/16 08/28/16 History Collagenase [Santyl] 1 applic TOPICAL DAILY 08/28/16 08/28/16 History Allergies Allergy/AdvReac Type Severity Reaction Status Date / Time amoxicillin Allergy Unknown Verified 08/28/16 11:17 cefazolin Allergy Rash/Hives Verified 08/28/16 11:17 sulfamethoxazole Allergy Itching Verified 08/28/16 11:17 [From Bactrim] trimethoprim [From Bactrim] Allergy Itching Verified 08/28/16 11:17 Surgical - Exam Vital Signs Temp Pulse Resp BP Pulse Ox 98.2 F 130 H 20 123/71 95 08/28/16 10:52 08/28/16 10:52 08/28/16 10:52 08/28/16 10:52 08/28/16 10:52 - General well developed, well nourished, no distress, no pain - Eyes PERRL, normal ocular movement - Neck trachea midline - Respiratory normal expansion, normal respiratory effort, clear to auscultation - Cardiovascular Rhythm: regular Heart Sounds: normal: S1, S2 - Abdomen Abdomen: soft, non tender, bowel sounds - Genitourinary Deferred - Rectum Deferred - Integumentary Left great toe with ulceration, approximately the size of a pencil eraser. No drainage noted. Wound looks dry and clean. - Psychiatric oriented to person, oriented to place Results - Labs 09/01/16 06:03 09/01/16 06:03 Abnormal Lab Results - Last 24 Hours (Table) 08/30/16 08/31/16 08/31/16 Range/Units 05:32 12:00 16:36 WBC (3.8-10.6) k/uL RBC (4.30-5.90) m/uL Hgb (13.0-17.5) gm/dL Hct (39.0-53.0) % Neutrophils # (1.3-7.7) k/uL Lymphocytes # (1.0-4.8) k/uL Sodium (137-145) mmol/L Chloride (98-107) mmol/L Carbon Dioxide (22-30) mmol/L BUN (9-20) mg/dL Glucose (74-99) mg/dL POC Glucose (mg/dL) 232 H 188 H (75-99) mg/dL Hemoglobin A1c 6.2 H (4.2-6.1) % Rheumatoid Factor (<12) IU/mL 08/31/16 09/01/16 09/01/16 Range/Units 20:46 06:03 06:03 WBC 16.9 H (3.8-10.6) k/uL RBC 4.08 L (4.30-5.90) m/uL Hgb 11.5 L (13.0-17.5) gm/dL Hct 36.3 L (39.0-53.0) % Neutrophils # 16.1 H (1.3-7.7) k/uL Lymphocytes # 0.3 L (1.0-4.8) k/uL Sodium 135 L (137-145) mmol/L Chloride 96 L (98-107) mmol/L Carbon Dioxide 32 H (22-30) mmol/L BUN 45 H (9-20) mg/dL Glucose 137 H (74-99) mg/dL POC Glucose (mg/dL) 160 H (75-99) mg/dL Hemoglobin A1c (4.2-6.1) % Rheumatoid Factor 18 H (<12) IU/mL 09/01/16 09/01/16 Range/Units 06:06 07:33 WBC (3.8-10.6) k/uL RBC (4.30-5.90) m/uL Hgb (13.0-17.5) gm/dL Hct (39.0-53.0) % Neutrophils # (1.3-7.7) k/uL Lymphocytes # (1.0-4.8) k/uL Sodium (137-145) mmol/L Chloride (98-107) mmol/L Carbon Dioxide (22-30) mmol/L BUN (9-20) mg/dL Glucose (74-99) mg/dL POC Glucose (mg/dL) 136 H 121 H (75-99) mg/dL Hemoglobin A1c (4.2-6.1) % Rheumatoid Factor (<12) IU/mL Microbiology - Last 24 Hours (Table) 08/28/16 11:52 Blood Culture - Preliminary Blood No Growth after 72 hours Diabetes panel 08/30/16 09/01/16 Range/Units 05:32 06:03 Sodium 135 L (137-145) mmol/L Potassium 4.0 (3.5-5.1) mmol/L Chloride 96 L (98-107) mmol/L Carbon Dioxide 32 H (22-30) mmol/L BUN 45 H (9-20) mg/dL Creatinine 1.10 (0.66-1.25) mg/dL Glucose 137 H (74-99) mg/dL Hemoglobin A1c 6.2 H (4.2-6.1) % Calcium 8.8 (8.4-10.2) mg/dL Calcium panel 09/01/16 Range/Units 06:03 Calcium 8.8 (8.4-10.2) mg/dL Pituitary panel 09/01/16 Range/Units 06:03 Sodium 135 L (137-145) mmol/L Potassium 4.0 (3.5-5.1) mmol/L Chloride 96 L (98-107) mmol/L Carbon Dioxide 32 H (22-30) mmol/L BUN 45 H (9-20) mg/dL Creatinine 1.10 (0.66-1.25) mg/dL Glucose 137 H (74-99) mg/dL Calcium 8.8 (8.4-10.2) mg/dL Adrenal panel 09/01/16 Range/Units 06:03 Sodium 135 L (137-145) mmol/L Potassium 4.0 (3.5-5.1) mmol/L Chloride 96 L (98-107) mmol/L Carbon Dioxide 32 H (22-30) mmol/L BUN 45 H (9-20) mg/dL Creatinine 1.10 (0.66-1.25) mg/dL Glucose 137 H (74-99) mg/dL Calcium 8.8 (8.4-10.2) mg/dL Assessment and Plan (1) Open wound of left great toe Status: Acute Plan: The patient was seen and examined. Chart was reviewed. Wound on his left great toe was examined and appears to be clean and dry, approximately the size of a pencil eraser. Santyl was applied and dressing was placed. Case was discussed with Dr. Lara. The patient is apparently going to [facility] today. Recommendations are to continue with Santyl dressing change daily and to have patient follow with Dr. Lara in the wound care center every week. Thank you for this consult. If there are any questions please do not hesitate to call. Time with Patient: Greater than 30 <Jc Lara - Last Filed: 09/02/16 09:00> History of Present Illness History of present illness: Patient will be followed in the wound center. Surgical - Exam Osteopathic Statement: *. No significant issues noted on an osteopathic structural exam other than those noted in the History and Physical/Consult. Vital Signs Temp Pulse Resp BP Pulse Ox 98.2 F 130 H 20 123/71 95 08/28/16 10:52 08/28/16 10:52 08/28/16 10:52 08/28/16 10:52 08/28/16 10:52 Results - Labs 09/01/16 06:03 09/01/16 06:03 Abnormal Lab Results - Last 24 Hours (Table) 09/01/16 Range/Units 12:50 POC Glucose (mg/dL) 179 H (75-99) mg/dL Microbiology - Last 24 Hours (Table) 08/28/16 11:52 Blood Culture - Preliminary Blood No Growth after 96 hours
[2016-09-01] MEDS ORDERED: BUPIVACAINE (PF) 0.5% 30 ML VIAL ONE (11:48)
[2016-09-01] MEDS ORDERED: fentaNYL (PF) 50 MCG/ML 2 ML AMP ONE (11:48)
[2016-09-01] MEDS ORDERED: LIDOCAINE 1%-EPI 1:100,000 20 ML VIAL ONE (11:48)
--- NOTE | 2016-09-01 12:13 | FL ---
FLUOROSCOPY 1 second of fluoroscopy time were utilized during Pain Injection. 1 images document the procedure.
[2016-09-01] MEDS: CHOLECALCIFEROL 1,000 UNIT TAB PO SCH (12:25)
[2016-09-01] MEDS: CYANOCOBALAMIN 500 MCG TAB PO SCH (12:25)
[2016-09-01 12:59] LABS: Glucose,Whole Blood 179 mg/dL (75-99)
--- NOTE | 2016-09-01 14:37 | P.PCN ---
Date of Procedure: 09/01/16 Preoperative Diagnosis: Postoperative Diagnosis: Procedure(s) Performed: Implants: Surgeon: Frederick Campbell Pathology: none sent Condition: stable Disposition: floor Indications for Procedure: Operative Findings: Description of Procedure: PROCEDURE: RIGHT-sided greater trochanteric bursa injection under fluoroscopic guidance. PREOP DIAGNOSIS: 1- Greater trochanteric bursitis POSTOP DIAGNOSIS: 1- Greater trochanteric bursitis ANESTHESIA: local with 1% lidocaine EBL: Minimal COMPLICATION: None. IV FLUIDS: ----- ml of crystalloid PROCEDURE INDICATION: Mr. Buitrago is an 89-year-old male with a history of rheumatoid arthritis and chronic hip pain secondary to greater trochanteric bursitis not responding to conservative treatment, and he was admitted to the hospital for uncontrolled pain in the right hip area despite consistent use of steroids. Fluoroscopy was used to optimize visualization of the needle placement and to maximize safety. No use of blood thinners but patient is on chronic steroids for rheumatoid arthritis treatment and bruises easily as a result. PROCEDURE DESCRIPTION: The patient was seen and identified in the preoperative area. Risks, benefits, complications, and alternatives were discussed with the patient, with risks including but not limited to bleeding, infection, nerve damage, incomplete pain relief, and allergic reactions to medications. The patient agreed to proceed with the procedure and signed the consent. IV was started. Vital signs were stable throughout the procedure. The patient was taken to the procedure room and was placed in the supine position on the procedure table. The right hip area was prepped and draped in the usual sterile fashion. Critical pause was taken. Using anteroposterior and lateral fluoroscopy, the right/left greater trochanteric area was identified. Subsequently, a 25-gauge, 3-1/2-inch needle was advanced under fluoroscopy towards this area. Once in the correct position, and after negative aspiration and with the absence of paresthesias, all of a solution containing 6 ml 0.5 % preservative-free Bupivacaine and Kenalog 40 mg, were injected. The needle was subsequently removed intact. At the end of the procedure, skin was cleansed, and bandages were applied. COMPLICATIONS: The patient tolerated the procedure well without complications. DISPOSITON/PLAN: The patient was placed in a supine position and transferred to the recovery area in a stable condition for observation, and will return to the medical floor under the care of the hospitalists. He will follow up with our clinic as needed in the future.
--- NOTE | 2016-09-01 15:00 | DS ---
FINAL DIAGNOSES: 1. Atrial fibrillation with fast ventricular rate present on admission, improved. 2. Urinary tract infection with sepsis secondary to Escherichia coli resistant, present on admission. 3. Troponin 0.324 indicating possibly acute non-ST elevation myocardial infarction, present on admission. 4. Acute right hip pain and possibly DJD, acute rheumatoid arthritis exacerbation present on admission. 5. Hyponatremia. 6. Increased WBC. 7. Status post trochanteric bursa injection. 8. Hypoalbuminemia with mild to moderate protein calorie malnutrition. 9. History of atrial fibrillation, chronic. 10. History of congestive heart failure. 11. History of chronic obstructive pulmonary disease. 12. History of gastroesophageal reflux disease. 13. History of essential hypertension. 14. History of degenerative joint disease. 15. History of rheumatoid arthritis. 16. History of premature atrial contractions. 17. History of esophageal dilatation. 18. History of prostate cancer. 19. History of nephrolithiasis. 20. History of gait dysfunction. 21. History of change in mental status with metabolic encephalopathy, acute possibly secondary to urinary tract infection with sepsis, present on admission. 22. Remote history of nicotine dependence. 23. Congestive heart failure with chronic diastolic dysfunction, ejection fraction 55% to 60%. 24. NO CODE, NO CARDIOPULMONARY RESUSCITATION, NO VENTILATOR. DISCHARGE DISPOSITION: The patient will be discharged in a stable condition with guarded prognosis. Discharge cleared by multiple consultants. Total time taken 35 minutes. Patient will be transferred to [facility]. HISTORY OF PRESENT ILLNESS: This is an 89-year-old gentleman with a past medical history of multiple medical problems who was admitted with features of atrial fibrillation. The patient also had a UTI with E. coli. Patient treated with antibiotics. Cardiology saw the patient. Patient was on remote telemetry. Patient also complaining of right hip pain. Rheumatoid arthritis with acute exacerbation has been considered. MRI could not be . Patient is seen by Orthopedics and Pain Management. Pain Management did treat with trochanteric bursa injection. Patient improved significantly. Rheumatoid factor was positive. Recommend a followup with dredging inspector in the outpatient setting. On exam, vitals are stable. CARDIOVASCULAR SYSTEM: S1, S2. ABDOMEN: Soft. NERVOUS SYSTEM: Diffusely weak. Labs are noted. DISCHARGE ADVICE: 1. Diet is cardiac. 2. Activity limited until followup. 3. Follow up with Dr. Nova in 1 week after discharge from [facility]. 4. CBC, BMP in the ECF. 5. Follow up with Dr. Robins, dredging inspector. DISCHARGE MEDICATIONS: 1. Boost 1 can p.o. t.i.d. in between meals. 2. Ecotrin 81 mg daily. 3. Vitamin D3 one thousand daily. 4. Santyl 1 application topical daily. 5. Vitamin B12 five hundred mcg p.o. daily. 6. Lasix 80 mg p.o. b.i.d. 7. Humalog scale, Accu-Cheks scale 150 to 200 = 2 units, 201 to 250 = 4 units, 251 to 300 = 6 units, 301 to 350 = 8 units, 351 to 400 = 10 units, more than 400 call. 8. Lopressor 25 mg p.o. b.i.d. 9. Nitrofurantoin 50 mg p.o. t.i.d. for 5 days. 10. Prilosec 40 mg daily. 11. Percocet 5 mg q.4 p.r.n. for pain. 12. K-Dur 20 mEq p.o. b.i.d. 13. Prednisone 30 mg daily for 5 days, 20 for 5 days, 10 for 5 days and 5 mg for 5 days and then discontinue. 14. Senna 2 tablets b.i.d. p.r.n. 15. Multivitamin 1 p.o. daily. Follow with Orthopedic Surgery as advised, follow with Cardiology as advised. MTDD
[2016-09-01 15:14] VITALS: BP 97/54; PULSE 81; TEMP 97.7
[2016-09-01] MEDS ORDERED: FUROSEMIDE 80 MG TAB PO SCH (16:00)
== END 2016-09-01 17:20 | DRG 871 ==
LOC: EC 10:49 → 6SEL 14:01 → 4MS4W 09-01 06:42
PROVIDERS: ADMIT Hospitalist; ATTEND Hospitalist
PROC: 3E0U3BZ Introduction of Anesthetic Agent into Joints, Percutaneous Approach (ICD-10-PCS; 2016-09-01)
PROC: 3E0U33Z Introduction of Anti-inflammatory into Joints, Percutaneous Approach (ICD-10-PCS; principal; 2016-09-01 11:00)
DX: A41.51 Sepsis due to Escherichia coli [E. coli] (principal); I21.4 Non-ST elevation (NSTEMI) myocardial infarction; G93.41 Metabolic encephalopathy; E44.0 Moderate protein-calorie malnutrition; I50.32 Chronic diastolic (congestive) heart failure; N39.0 Urinary tract infection, site not specified; E87.1 Hypo-osmolality and hyponatremia; I11.0 Hypertensive heart disease with heart failure; I48.2 Chronic atrial fibrillation; J44.9 Chronic obstructive pulmonary disease, unspecified; L97.529 Non-pressure chronic ulcer of other part of left foot with unspecified severity; Z66 Do not resuscitate; G89.29 Other chronic pain; M70.61 Trochanteric bursitis, right hip; E78.5 Hyperlipidemia, unspecified; I49.1 Atrial premature depolarization; I49.3 Ventricular premature depolarization; K59.00 Constipation, unspecified; K21.9 Gastro-esophageal reflux disease without esophagitis; M06.9 Rheumatoid arthritis, unspecified; M16.11 Unilateral primary osteoarthritis, right hip; M48.00 Spinal stenosis, site unspecified; R32 Unspecified urinary incontinence; R26.9 Unspecified abnormalities of gait and mobility; Z16.24 Resistance to multiple antibiotics; Z87.891 Personal history of nicotine dependence; Z99.3 Dependence on wheelchair; Z85.46 Personal history of malignant neoplasm of prostate; Z87.442 Personal history of urinary calculi; Z95.0 Presence of cardiac pacemaker; Z96.659 Presence of unspecified artificial knee joint; Z79.82 Long term (current) use of aspirin; Z79.52 Long term (current) use of systemic steroids; Z79.899 Other long term (current) drug therapy; Z88.1 Allergy status to other antibiotic agents
CPT/HCPCS: 20610; 36415; 71010; 73502; 74000; 80048; 80053; 81001; 82550; 82553; 83036; 84443; 84484; 84550; 85025; 85610; 85652; 85730; 86038; 86140; 86431; 87040; 87077; 87086; 87186; 93005; 96361; 96365; 96367; 96375; 99285